=== PATIENT | male | born 1935 | race Caucasian/White ===

== ENCOUNTER → 2023-10-14 10:29 | Outpatient (REF) | payer MEDICARE, OTHER, SELFPAY ==
[2023-10-14 11:08] LABS: HDL Cholesterol 26 mg/dl; LDL Cholesterol, Calculated 28 mg/dl; Total Cholesterol 79 mg/dl (50-199); Triglyceride 126 mg/dl (10-149); Very Low Density Lipoprotein 25 mg/dl (0-30)
== END ==
LOC: OLABN 10:29
PROVIDERS: ATTENDING PHYSICIAN Student in an Organized Health Care Education/Training Program
DX: E78.5 Hyperlipidemia, unspecified (principal)
CPT/HCPCS: 36415; 80061

== ENCOUNTER → 2023-10-25 10:09 | Outpatient (REF) | payer MEDICARE, OTHER, SELFPAY ==
[2023-10-25 12:23] LABS: Blood Urea Nitrogen 53 mg/dl (9-20); Calcium 10.2 mg/dl (8.4-10.2); Carbon Dioxide 28 mmol/L (22-30); Chloride 97 mmol/L (98-107); Glucose 89 mg/dl (70-99); Potassium 4.7 mmol/L (3.5-5.1); Sodium 134 mmol/L (135-145); eGFR 19.37
[2023-10-25 13:16] LABS: Vitamin B12 966 pg/ml (239-931)
== END ==
LOC: OLABN 10:09
PROVIDERS: ATTENDING PHYSICIAN Student in an Organized Health Care Education/Training Program
DX: E83.51 Hypocalcemia (principal); E53.8 Deficiency of other specified B group vitamins
CPT/HCPCS: 36415; 80048; 82607

== ENCOUNTER → 2023-11-02 13:25 | Outpatient (REF) | payer MEDICARE, OTHER, SELFPAY ==
[2023-11-02 14:48] LABS: Blood Urea Nitrogen 23 mg/dl (9-20); Carbon Dioxide 23 mmol/L (22-30); Chloride 106 mmol/L (98-107); Glucose 99 mg/dl (70-99); Potassium 4.7 mmol/L (3.5-5.1); Sodium 134 mmol/L (135-145); eGFR 41.19
== END ==
LOC: OLABN 13:25
PROVIDERS: ATTENDING PHYSICIAN Student in an Organized Health Care Education/Training Program
DX: I10 Essential (primary) hypertension (principal)
CPT/HCPCS: 36415; 80048

== ENCOUNTER → 2023-11-09 10:52 | Outpatient (REF) | payer MEDICARE, OTHER, SELFPAY ==
[2023-11-09 12:05] LABS: Blood Urea Nitrogen 22 mg/dl (9-20); Calcium 7.3 mg/dl (8.4-10.2); Carbon Dioxide 23 mmol/L (22-30); Chloride 104 mmol/L (98-107); Glucose 85 mg/dl (70-99); Potassium 5.1 mmol/L (3.5-5.1); Sodium 133 mmol/L (135-145); eGFR 48.34
== END ==
LOC: OLABN 10:52
PROVIDERS: ATTENDING PHYSICIAN Student in an Organized Health Care Education/Training Program
DX: I10 Essential (primary) hypertension (principal)
CPT/HCPCS: 36415; 80048

== ENCOUNTER → 2023-11-15 10:12 | Outpatient (REF) | payer MEDICARE, OTHER, SELFPAY ==
[2023-11-15 11:27] LABS: Hematocrit 23.4 % (39.0-52.0); Hemoglobin 7.5 g/dL (13.0-18.0); Mean Corp Hgb Conc. 32.1 g/dL (33.0-37.0); Mean Corpuscular Hgb 34.1 pg (27.0-31.0); Mean Corpuscular Volume 106.4 fL (80.0-94.0); Mean Platelet Volume 10.7 fL (7.4-10.4); Platelet Count 820 10^3/uL (130-400); Red Cell Dist. Width 20.6 % (11.5-14.5); White Blood Cell Count 9.3 10^3/uL (4.8-10.8)
[2023-11-15 11:31] LABS: Blood Urea Nitrogen 28 mg/dl (9-20); Calcium 8.8 mg/dl (8.4-10.2); Carbon Dioxide 21 mmol/L (22-30); Chloride 102 mmol/L (98-107); Glucose 100 mg/dl (70-99); Potassium 4.9 mmol/L (3.5-5.1); Sodium 132 mmol/L (135-145); eGFR 41.19
== END ==
LOC: OLABN 10:12
PROVIDERS: ATTENDING PHYSICIAN Student in an Organized Health Care Education/Training Program
DX: I10 Essential (primary) hypertension (principal)
CPT/HCPCS: 36415; 80048; 85027

== ENCOUNTER → 2023-11-16 11:29 | Outpatient (REF) | payer MEDICARE, OTHER, SELFPAY ==
[2023-11-16 12:30] LABS: Blood Urea Nitrogen 31 mg/dl (9-20); Calcium 8.7 mg/dl (8.4-10.2); Carbon Dioxide 26 mmol/L (22-30); Chloride 99 mmol/L (98-107); Glucose 82 mg/dl (70-99); Potassium 5.3 mmol/L (3.5-5.1); Sodium 133 mmol/L (135-145)
[2023-11-18 08:48] LABS: Iron 37 ug/dl (49-181)
[2023-11-18 08:57] LABS: Percent Saturation 13 % (20-50); Total Iron Binding Capacity 275 ug/dl (261-462)
[2023-11-18 10:29] LABS: Ferritin 98.4 ng/ml (17.9-464.0)
[2023-11-18 10:44] LABS: Vitamin B12 558 pg/ml (239-931)
== END ==
LOC: OLABN 11:29
PROVIDERS: ATTENDING PHYSICIAN Student in an Organized Health Care Education/Training Program
DX: I10 Essential (primary) hypertension (principal)
CPT/HCPCS: 36415; 80048; 82607; 82728; 83540; 83550

== ENCOUNTER → 2023-11-23 10:14 | Outpatient (REF) | payer MEDICARE, OTHER, SELFPAY ==
[2023-11-23 11:21] LABS: Blood Urea Nitrogen 25 mg/dl (9-20); Calcium 8.1 mg/dl (8.4-10.2); Carbon Dioxide 24 mmol/L (22-30); Chloride 105 mmol/L (98-107); Glucose 120 mg/dl (70-99); Potassium 4.3 mmol/L (3.5-5.1); Sodium 135 mmol/L (135-145)
== END ==
LOC: OLABN 10:14
PROVIDERS: ATTENDING PHYSICIAN Student in an Organized Health Care Education/Training Program
DX: I10 Essential (primary) hypertension (principal)
CPT/HCPCS: 36415; 80048

== ENCOUNTER → 2023-12-01 10:22 | Outpatient (REF) | payer MEDICARE, OTHER, SELFPAY ==
[2023-12-01 10:53] LABS: Hematocrit 24.3 % (39.0-52.0); Hemoglobin 7.9 g/dL (13.0-18.0); Mean Corp Hgb Conc. 32.5 g/dL (33.0-37.0); Mean Corpuscular Volume 107.5 fL (80.0-94.0); Mean Platelet Volume 11.7 fL (7.4-10.4); Platelet Count 562 10^3/uL (130-400); Red Blood Cell Count 2.26 10^6/uL (4.70-6.10); Red Cell Dist. Width 20.6 % (11.5-14.5); White Blood Cell Count 7.7 10^3/uL (4.8-10.8)
== END ==
LOC: OLABN 10:22
PROVIDERS: ATTENDING PHYSICIAN Student in an Organized Health Care Education/Training Program
DX: I10 Essential (primary) hypertension (principal); N39.0 Urinary tract infection, site not specified
CPT/HCPCS: 36415; 85027

== ENCOUNTER → 2023-12-07 11:42 | Outpatient (REF) | payer MEDICARE, OTHER, SELFPAY ==
[2023-12-07 13:01] LABS: % Basophils 0.4 % (0-2); % Eosinophils 11.7 % (0-6); % Immature Granulocytes 0.2 % (0-0.5); % Lymphocytes 46.5 % (20.5-51.1); % Monocytes 3.7 % (1.7-9.3); % Neutrophils 37.5 % (42.2-75.2); Absolute Lymphocytes 3.8 10^3/uL (1.2-3.4); Absolute Monocytes 0.3 10^3/uL (0.1-0.6); Absolute Neutrophils 3.1 10^3/uL (1.4-6.5); Hematocrit 25.4 % (39.0-52.0); Hemoglobin 8.2 g/dL (13.0-18.0); Mean Corp Hgb Conc. 32.3 g/dL (33.0-37.0); Mean Corpuscular Volume 108.5 fL (80.0-94.0); Mean Platelet Volume 11.1 fL (7.4-10.4); Nucleated Red Blood Cells % 0.2 % (-); Platelet Count 678 10^3/uL (130-400); Red Blood Cell Count 2.34 10^6/uL (4.70-6.10); Red Cell Dist. Width 20.9 % (11.5-14.5); White Blood Cell Count 8.2 10^3/uL (4.8-10.8)
[2023-12-07 13:22] LABS: Blood Urea Nitrogen 25 mg/dl (9-20); Calcium 8.5 mg/dl (8.4-10.2); Carbon Dioxide 24 mmol/L (22-30); Chloride 101 mmol/L (98-107); Glucose 86 mg/dl (70-99); Potassium 4.8 mmol/L (3.5-5.1); Sodium 136 mmol/L (135-145); eGFR 48.34
== END ==
LOC: OLABN 11:42
PROVIDERS: ATTENDING PHYSICIAN Student in an Organized Health Care Education/Training Program
DX: I10 Essential (primary) hypertension (principal)
CPT/HCPCS: 80048; 85025

== ENCOUNTER → 2024-01-07 14:08 | Outpatient (REF) | payer MEDICARE, OTHER, SELFPAY ==
[2024-01-07 14:11] LABS: % Basophils 0.1 % (0-2); % Eosinophils 8.1 % (0-6); % Immature Granulocytes 0.2 % (0-0.5); % Lymphocytes 26.6 % (20.5-51.1); % Monocytes 3.2 % (1.7-9.3); % Neutrophils 61.8 % (42.2-75.2); Absolute Eosinophils 0.8 10^3/uL (0-0.7); Absolute Lymphocytes 2.6 10^3/uL (1.2-3.4); Absolute Monocytes 0.3 10^3/uL (0.1-0.6); Absolute Neutrophils 5.9 10^3/uL (1.4-6.5); Hematocrit 27.2 % (39.0-52.0); Mean Corp Hgb Conc. 33.1 g/dL (33.0-37.0); Mean Corpuscular Hgb 34.7 pg (27.0-31.0); Mean Platelet Volume 11.2 fL (7.4-10.4); Nucleated Red Blood Cells % 0 % (-); Platelet Count 816 10^3/uL (130-400); Red Blood Cell Count 2.59 10^6/uL (4.70-6.10); Red Cell Dist. Width 19.1 % (11.5-14.5); Reticulocyte Count 1.6 % (0.4-2.8); White Blood Cell Count 9.6 10^3/uL (4.8-10.8)
[2024-01-07 14:31] LABS: Erythrocyte Sed Rate 69 mm/hour (0-20); Iron 93 ug/dl (49-181); LDH 225 U/L (120-246)
[2024-01-07 14:41] LABS: Percent Saturation 31 % (20-50); Total Iron Binding Capacity 291 ug/dl (261-462)
[2024-01-07 15:02] LABS: TSH Reflex To Free T4 2.07 uIU/ml (0.47-4.68)
[2024-01-07 15:06] LABS: Ferritin 84.8 ng/ml (17.9-464.0)
[2024-01-07 15:38] LABS: Folate 4.5 ng/ml (2.76-20)
[2024-01-09 09:53] LABS: Erythropoietin (EPO) 49 mU/mL (4-27)
[2024-01-10 22:24] LABS: Albumin 3.73 g/dL (3.75-5.01); Alpha 1 Globulin 0.33 g/dL (0.19-0.46); Alpha 2 Globulin 0.77 g/dL (0.48-1.05); Free Kappa Light Chains,Quant 91.82 mg/L (3.30-19.40); Free Lambda Light Chains,Quant 65.19 mg/L (5.71-26.30); IgA 374 mg/dL (68-408); IgG 1170 mg/dL (768-1632); IgM 70 mg/dL (35-263); Immunofixation Electrophoresis IFE Done; Kappa/Lambda Fr Light Ratio 1.41 (0.26-1.65); Total Protein-Electrophoresis 7.1 g/dL (6.3-8.2)
== END ==
LOC: OIDL 14:08
PROVIDERS: ATTENDING PHYSICIAN Internal Medicine Hematology & Oncology
DX: D50.9 Iron deficiency anemia, unspecified (principal); D52.0 Dietary folate deficiency anemia; R53.82 Chronic fatigue, unspecified
CPT/HCPCS: 82668; 82728; 82746; 82784; 83521; 83540; 83550; 83615; 84155; 84165; 84443; 85025; 85045; 85652; 86334

== ENCOUNTER 2024-01-31 03:34 | Inpatient (IN) | payer MEDICARE, OTHER, SELFPAY ==
[2024-01-30 22:57] VITALS: BP 113/45
[2024-01-30 23:25] LABS: Urine Albumin Trace (Neg - Trace); Urine Bilirubin 1+ (Negative); Urine Character Slightly Cloudy (Clear); Urine Color Yellow; Urine Glucose Negative (Negative); Urine Ketone Negative (Negative); Urine Leukocyte 2+ (Negative); Urine Nitrite Positive (Negative); Urine Occult Blood 1+ (Negative); Urine Urobilinogen Negative (Neg - 1+)
[2024-01-30 23:30] VITALS: BMI 27.5
[2024-01-30 23:52] LABS: Hemoglobin 8.1 g/dL (13.0-18.0); Mean Corp Hgb Conc. 32.4 g/dL (33.0-37.0); Mean Corpuscular Hgb 35.8 pg (27.0-31.0); Mean Corpuscular Volume 110.6 fL (80.0-94.0); Mean Platelet Volume 10.8 fL (7.4-10.4); Platelet Count 686 10^3/uL (130-400); Red Blood Cell Count 2.26 10^6/uL (4.70-6.10); Red Cell Dist. Width 18.7 % (11.5-14.5); White Blood Cell Count 10.5 10^3/uL (4.8-10.8)
[2024-01-31] VITALS (12 sets, daily range): BP systolic 103–152; BP diastolic 44–99; BMI 27.2
[2024-01-31 00:05] LABS: ALT (SGPT) 20 U/L (0-50); AST (SGOT) 34 U/L (17-59); Alkaline Phosphatase 77 U/L (38-126); Blood Urea Nitrogen 30 mg/dl (9-20); Calcium 8.1 mg/dl (8.4-10.2); Carbon Dioxide 23 mmol/L (22-30); Chloride 108 mmol/L (98-107); Estimated Creatinine Clearance 31 ml/min; Glucose 106 mg/dl (70-99); Potassium 4.3 mmol/L (3.5-5.1); Sodium 140 mmol/L (135-145); Total Bilirubin 0.7 mg/dl (0.2-1.3); Total Protein 5.9 g/dl (6.3-8.2)
[2024-01-31 00:09] LABS: COVID-19 Antigen Negative (Negative)
[2024-01-31 00:47] LABS: Urine Amorphous Seen; Urine Bacteria Many (Negative); Urine Squamous Cell >30 /LPF (Few); Urine White Cell >100 /HPF (0-5)
[2024-01-31 00:48] LABS: Urine Mucus Moderate; Urine Urothelial Cell >30 /LPF (FEW)
[2024-01-31 00:49] LABS: Urine White Cell Cast 0-2 /LPF
[2024-01-31 01:04] LABS: Absolute Neutrophils -Man Diff 8.2 10^3/uL (1.4-6.5); Anisocytosis 1+; Band Neutrophils 14 % (0-3); Eosinophils 1 % (0-6); Lymphocytes 19 % (20-51); Macrocytosis 1+; Monocytes 1 % (2-9); Normal RBC Morphology No; Segmented Neutrophils 65 % (42-75)
[2024-01-31 01:05] LABS: Hypochromasia 2+; Stomatocytes 1+; Target Cells 1+; Total Cells Counted 100
[2024-01-31 01:06] LABS: Basophilic Stippling Occasional; Polychromasia Occasional
[2024-01-31 01:08] LABS: Ovalocytes Occasional; Platelets Checked Yes
[2024-01-31 01:09] LABS: Toxic Granulation Occassional
--- NOTE | 2024-01-31 01:27 | ED.GENMED ---
History of Present Illness
General
Chief Complaint: Fever
Source: patient and family
Exam Limitations: clinical condition and altered mental status
Time Seen by Provider: 01/31/24 00:57
Nursing documentation reviewed up to this point in time: agreed with
Travel History
Have you had any contact with someone who has COVID-19?: No
Do you have any symptoms of coronavirus? Fever > 100 degrees, chills, cough, shortness of breath, sore throat, loss of taste or smell, muscle aches, or headache?: Yes
Symptoms:: Fever
History of Present Illness
History of Present Illness:
Confused 88-year-old male presents with fever. Patient resides at [facility] and has lived there for the last 6 years. Patient had a stroke 26 years ago and has lived with his as his primary caregiver for 20 of those years. She moved
him into a [facility] when she could not transfer him any longer due to the size difference. Patient's states that she goes to the chcf every evening after work and all weekend long to care for him. She states that today he had a
fever. She does report that over the last few weeks he has lost about 9 pounds. She noticed that he has been eating much less than typical. She states that he has had increased confusion and has been aggressive towards the nurses which is
atypical for him. Patient has also had an indwelling suprapubic catheter for several years.
Vital signs are stable. Patient not hypoxic
Nursing note reviewed. I agree with nursing documentation up to this point in time.
Home Meds and allergies reviewed.
NUMBER AND COMPLEXITY OF PROBLEMS ADDRESSED AT THE ENCOUNTER
� Chronic conditions affecting care: Memory loss, aphasia, paralysis, suprapubic catheter. Anemia
� Acute Exacerbation and/or Progression of Chronic Illness:
� Differential Diagnosis includes: UTI, sepsis, fever
AMOUNT AND/OR COMPLEXITY OF DATA TO BE REVIEWED AND ANALYZED
I performed an independent evaluation of the following and my interpretation is:
EKG:
CT:
X-rays: Chest x-ray shows likely right-sided pneumonia
Ultrasound:
Laboratory Studies: Hemoglobin 8.1 which is typical of his previous hemoglobins.
Other:
Review of other/old records: Operative report 06/02/2023 placement of suprapubic tube
Clinical information was obtained by an independent historian:
Prescriptions/Medications Considered but not given:
Further testing considered but not performed:
RISK OF COMPLICATIONS AND/OR MORBIDITY OR MORTALITY OF PATIENT MANAGEMENT
Social determinants of health affecting care: Good Social Support
Discussion with other providers:
Escalation of care including admission/observation vs risk of discharge considered:
CRITICAL CARE NOTE:
Total Time (exclusive of procedures):
Update:
Past History
Past History
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
ED Past Surgical History: Urological (Suprapubic catheter)
Social History
Tobacco: Non-smoker
Alcohol: None
Drug: None
Personal:
Living: chcf ([facility])
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
Family History
Family History: Other (n/c)
Review of Systems
Review of Systems
Allergies reviewed?: Yes
Other source history: family
Constitutional: Reports fever, weight loss, fatigue and sleep disturbance
Neurological: Reports weakness
Psychiatric: Reports other (Aggressive behavior)
Phy Exam
General Physical Exam
General Presentation: mild distress
General age: appears older than age
General Skin: warm and dry
General Habitus: debilitated and elderly
General Mental: confused
General Chronic Disability: diapers, non ambulatory and other (On 2 L nasal cannula)
Cardiovascular Exam
Cardiovascular Exam: regular rate/rhythm and no edema
Pulmonary Exam
Pulmonary Exam: lungs clear and no respiratory distress (On 2 L nasal cannula)
Gastrointestinal Exam
Gastrointestinal Exam: normal bowel sounds, non tender, soft and non distended
Neurological Exam
Neurological Exam: confused and non verbal
Musculoskeletal Exam
Musculoskeletal Exam: neuro vasc intact and other (Right-sided weakness)
Skin Exam
Skin Exam: normal color and warm/dry
Psychiatric Exam
Psychiatric Exam: labile
Course
Orders/Labs/Results
Orders:
Orders
01/30/24 23:07
CR Chest Portable - 1 View Urgent
Comment:
Reason For Exam: cough and fever
Reason Study Needs to be Portable: Unable to Transport
01/30/24 23:08
Electrocardiogram (*1) Urgent
Reason for Study: Other
Other Reason for Exam: Possible Sepsis
Cardiac Monitoring- Treatment ONCE
EKG- Treatment ONCE
IV Insert/Care/Rem.- Treatment PRN
Straight cath- Treatment ONCE
O2 Therapy [RESP] Urgent
Titrate/Wean O2 to maintain O2 sat greater than (%): 93
Special Instructions: TO MAINTAIN CONTINUOUS O2 SATS > OR = 93%
Pulse Ox/cont/shift [RESP] Urgent
Quantity: 1
Special Instructions: CONTINUOUS
01/30/24 23:18
Urinalysis Reflex To Culture Urgent
Date Specimen was Collected: 01/30/24
Time Specimen was Collected: 23:08
Urine Microscopic Reflex Cult Urgent
Urine Culture Urgent
MEDHAT Source: U
Specimen Description:
Date Specimen was Collected: 01/30/24
Time Specimen was Collected: 23:08
01/30/24 23:41
COVID-19 Antigen Urgent
Source: Nasal Swab
Complete Blood Count/With Diff Urgent
Comprehensive Metabolic Panel Urgent
Lactic Acid Q4H
Comment: ON ICE, CANCEL 2ND ORDER IF FIRST LACTIC ACID LEVEL <2
Manual Differential Urgent
Blood Culture Q30M
MEDHAT Source: Blood/Venous
Specimen Description:
Comment: FROM 2 SEPARATE SITES
Influenza A+B Rapid Molecular Urgent
MEDHAT Source: Nasal Swab
Specimen Description:
01/30/24 23:45
Blood Culture Q30M
MEDHAT Source: Blood/Venous
Specimen Description:
Comment: FROM 2 SEPARATE SITES
01/31/24 01:33
Aztreonam [Azactam] 2,000 mg IV NOW STA
01/31/24 01:44
Sterile Water [Sterile Water For Injection] 10 ml .ROUTE .[facility]
01/31/24 02:03
Linezolid 600 mg/300 ml [Zyvox 600 mg] 300 ml IV NOW
01/31/24 03:05
Admit/Transfer Patient As Directed
Co-Sign Provider:
Level of Care: Inpatient admission
Assign to:: Telemetry
Physician / Group: Godfrey
Diagnosis: Pneumonia / Change in MS
Reason for Telemetry: Arrhythmia
Date to Stop Telemetry: 02/03/24
Time to Stop Telemetry: 11:00
Reason for Hospitalization: Pneumonia / Change in MS
Expected length of stay greater than two midnights?: Yes
ELOS- Estimated Length of Stay in days: 4
I certify the patient meets the requirements for IP care: Yes
01/31/24 03:14
Code Status As Directed
Resuscitation Status: Do not resuscitate
Reached after discussion with pt or family/Healthcare POA: Yes
01/31/24 03:18
DNR Bracelet Application ONCE
01/31/24 04:46
0.9% Sodium Chloride 1000 ml [Nss] 1,000 ml IV 100 mls/hr
Acetaminophen [Tylenol] 650 mg PO Q4HPRN PRN
Albuterol Nebs [Ventolin Nebules] 2.5 mg INH R Q4HPRN PRN
Polyethylene Glycol Powder [Miralax] 17 grams PO DAILY PRN
01/31/24 04:46
Activity As Directed
Activity Level: Out of Bed- Chair
With Assistance
Catheter-Suprapubic As Directed
EKG with chest pain [ECG as needed] As Directed
ECG as needed for:: Chest Pain
I/O [Intake/ Output] As Directed
Frequency: Per unit guidelines
Vital Signs As Directed
Frequency: Per unit guidelines
Oxygen Therapy [O2 Therapy] [RESP] Routine
Titrate/Wean O2 to maintain O2 sat greater than (%): 94
US Renal With Bladder Routine
Comment:
Reason For Exam: UTI, History of stones
DX Deep Vein Thrombosis Video Routine
01/31/24 05:12
Basic Metabolic Panel IN AM
Complete Blood Count/No Diff IN AM
01/31/24 Breakfast
Regular
At Your Request: Limited, Commissioning Editor Required
Does patient need a safe tray?: No
01/31/24 08:00
Aspirin 325 mg PO DAILY
Docusate Sodium [Colace] 100 mg PO BID
Doxycycline [Vibramycin] 100 mg PO Q12
01/31/24 18:00
Enoxaparin Sodium [Lovenox] 30 mg SC QPM
01/31/24 22:00
Atorvastatin [Lipitor] 40 mg PO HS
Sennosides [Senokot] 17.2 mg PO HS
02/03/24 11:00
DC Protocol for Telemetry ONCE
Abnormal Lab Results
01/30/24 01/30/24
23:18 23:41
RBC 2.26 L 10^6/uL
(4.70-6.10)
Hgb 8.1 L g/dL
(13.0-18.0)
Hct 25.0 L %
(39.0-52.0)
MCV 110.6 H fL
(80.0-94.0)
MCH 35.8 H pg
(27.0-31.0)
MCHC 32.4 L g/dL
(33.0-37.0)
RDW 18.7 H %
(11.5-14.5)
Plt Count 686 H 10^3/uL
(130-400)
MPV 10.8 H fL
(7.4-10.4)
Abs Neuts (Manual) 8.2 H 10^3/uL
(1.4-6.5)
Band Neutrophils 14 H %
(0-3)
Lymphocytes (Manual) 19 L %
(20-51)
Monocytes (Manual) 1 L %
(2-9)
Chloride 108 H mmol/L
(98-107)
BUN 30 H mg/dl
(9-20)
Creatinine 1.7 H mg/dL
(0.7-1.3)
Glucose 106 H mg/dl
(70-99)
Calcium 8.1 L mg/dl
(8.4-10.2)
Total Protein 5.9 L g/dl
(6.3-8.2)
Albumin 3.0 L g/dl
(3.5-5.0)
Ur Occult Blood Reflex 1+ A
(Negative)
Urine Nitrite (Reflex) Positive A
(Negative)
Urine Bilirubin 1+ A
(Negative)
Leukocyte Esterase Rfl 2+ A
(Negative)
Urine WBC (Reflex) >100 A /HPF
(0-5)
Urine Bacteria (Reflex) Many A
(Negative)
01/30/24 23:41
01/30/24 23:41
Vital Signs
Initial and Last Documented VS:
Initial Vital Signs
Pulse Resp BP Pulse Ox
69 28 113/45 90
01/30/24 22:57 01/30/24 22:57 01/30/24 22:57 01/30/24 22:57
Last Documented Vital Signs
Temp Pulse Resp BP Pulse Ox
99.7 F 71 20 130/57 91
02/01/24 19:39 02/01/24 19:39 02/01/24 19:39 02/01/24 19:39 02/01/24 19:39
*Critical Care Note
Total Time (30-74mins, 75-104mins- exclusive of procedures): Not Applicable
ED Attending Note
-
Portions of this chart may have been created with voice recognition software.� Occasional wrong word or��sound alike� substitutions may have occurred due to the inherent limitations of voice recognition software.
Discharge Plan
Departure
Patient Disposition: Admit
Date of Disposition: 01/31/24
Time of Disposition: 01:55
Admit to: Med/Surg
Presentation/result/management discussed w/ accepting MD/DO: Hospitalist
Discharge Problem:
Pneumonia, Acute UTI, Adult failure to thrive, Weakness
Interventions
Interventions:
*Risk Screen - Suicide Last Done: 01/30/24 22:57
*General Assessment Last Done: 01/30/24 22:57
*Neglect/Abuse Screening Last Done: 01/30/24 22:57
ED- Fall Risk Assessment Last Done: 01/30/24 23:11
*ED COVID-19 Vaccine History Last Done: 01/30/24 22:57
*Nursing Disposition Last Done: 01/31/24 04:40
ED- Neurological Assessment Last Done: 01/30/24 23:59
ED-Skin Assessment Last Done: 01/30/24 23:59
Discharge Date and Time
Discharge Date/Time: 01/31/24 04:40
[2024-01-31] MEDS: AZACTAM 2000 MG IV (01:51)
--- NOTE | 2024-01-31 02:02 | EDRN ---
Called pharmacy for zyvox iv
[2024-01-31] MEDS: ZYVOX 600 MG 300 IV (02:45)
--- NOTE | 2024-01-31 03:20 | HPS.HSE ---
Family Physician
-
Family Physician: Jack Olsen,
Chief Complaint
-
Fever, Altered Mental Status
History of Present Illness
Patient is an 88y M with PMH significant for prior CVA with resultant R hemiparesis / aphasia, neurogenic bladder and chronic suprapubic catheter who presents to ED for evaluation of fever and mental status change. History obtained from [facility]
record, ED staff and at the bedside. notes that patient started to have decreased appetite, increased agitation / confusion and hacking cough on Wednesday. His symptoms have gradually progressed since that time. Patient is either sleeping
or agitated according to his . He has not been noted to have any N/V/D. His urine output via suprapubic catheter appears to be diminished.
His vitals at the [facility] this evening included fever to 102 and SpO2 in the 80s on room air.
In the ED, patient is sleeping comfortably. He wakens briefly and will answer Y/N questions, but falls quickly back to sleep.
At baseline, he is confined to a wheelchair and has difficulty with communication due to his chronic aphasia.
Medical History
Past Medical History
Past Medical History: Reports Other
Additional Past Medical History:
ASCVD / CVA
Right Hemiparesis / Aphasia s/p CVA
Hypertension
Neurogenic Bladder
Nephrolithiasis
GERD
Anemia of Chronic Disease
Essential Thrombocytosis
CKD III
Past Surgical History: Reports Other
Additional Past Surgical History:
Suprapubic Catheter
Ureteroscopy / Stent
Social History
Tobacco: Non-smoker
Alcohol: None
Drug: None
Living: [facility]sp
Family History
Family History: Not pertinent
Allergies / Home Medications
Allergies reflects when Allergies were last updated in [employer]
Home Medications with original date entered in [employer]
Allergy/Medication List:
Allergies
Allergy/AdvReac Type Severity Reaction Status Date / Time
vancomycin Allergy Intermediate Hives Verified 01/31/24 00:24
latex Allergy Unknown Verified 01/31/24 00:24
Penicillins Allergy Swelling Verified 01/31/24 00:24
Home Medications
acetaminophen 325 mg capsule (Tylenol) 650 mg PO Q4HPRN PRN mild pain, T>100.4 05/03/23
aspirin 325 mg tablet 325 mg PO DAILY Blood Clot Prevention/Tx 05/03/23
atorvastatin 40 mg tablet 40 mg PO HS High Cholesterol 05/03/23
bisacodyl 10 mg rectal suppository 10 mg VA DAILYPRN PRN no BM after MOM 05/03/23
docusate sodium 100 mg capsule (Colace) 100 mg PO MOWEFR 05/03/23
famotidine 10 mg tablet 10 mg PO DAILY 05/03/23
ferrous gluconate 324 mg (37.5 mg iron) tablet 324 mg PO DAILY 05/03/23
furosemide 20 mg tablet 40 mg PO DAILY 05/03/23
magnesium hydroxide 400 mg/5 mL oral suspension (Milk of Magnesia) 30 ml PO HSPRN PRN constipation 05/03/23
nifedipine 30 mg tablet,extended release 24 hr (Procardia XL) 30 mg PO DAILY #14 tabs 05/09/23
lisinopril 40 mg tablet 40 mg PO DAILY 05/26/23
calcium carbonate 500 mg PO DAILY 01/31/24
cholecalciferol (vitamin D3) 125 mcg (5,000 unit) tablet (Vitamin D3) 125 mcg PO DAILY 01/31/24
cyanocobalamin (vitamin B-12) 1,000 mcg tablet,extended release (Vitamin B-12 ER) 1,000 mcg PO DAILY 01/31/24
Review of Systems
-
History Source: Family
Constitutional: Reports Fever and Fatigue
Respiratory: Reports Cough
Abdomen/GI: Denies Nausea, Vomiting or Diarrhea
: Reports Suprapubic Tube and Other (Decreased volume of urination.)
Musculoskeletal: Reports Edema
Psych: Reports Anxiety
Physical Exam
Vital Signs
Vital Signs
Temp Pulse Resp BP Pulse Ox
99.2 F 70 15 140/99 94
01/30/24 23:30 01/31/24 03:00 01/31/24 03:00 01/31/24 03:00 01/31/24 03:00
Physical Exam
General: Other (Chronically ill-appearing 88y M lethargic in the ED. Awakens briefly to voice and answers Y/N questions at times.)
HEENT: Other (Thick neck. Dry MM.)
Respiratory: Other (Few coarse breath sounds appreciated over the R base. No wheezing / rales.)
Cardiac: S1/S2, Regular Rhythm and Murmur (III/ ALEJANDRO)
GI: Soft, Non Tender, Non Distended and Normal Bowel Sounds
Genito-urinary: Other (Suprapubic tube in place. No purulent drainage or surrounding erythema. Dark / sandy urine in device.)
Musculoskeletal: Other (Dependent edema in the RUE and RLE greater than the left.)
Neuro: Other (Dense R hemiparesis and expressive aphasia are unchanged. No new deficits appreciated.)
Laboratory Results
-
01/30/24 23:41
01/30/24 23:41
Laboratory Results
Lactic Acid Cancelled 01/31/24 03:15
Total Bilirubin 0.7 mg/dl (0.2-1.3) 01/30/24 23:41
AST 34 U/L (17-59) 01/30/24 23:41
ALT 20 U/L (0-50) 01/30/24 23:41
Alkaline Phosphatase 77 U/L (38-126) 01/30/24 23:41
Impression/Plan
-
A/P: Patient is an 88y M with PMH significant for R hemiparesis and aphasia s/p prior CVA who presents to ED for evaluation of fever, cough and altered mental status.
RLL Pneumonia
Acute Hypoxemic Respiratory Insufficiency secondary to the above
Acute TME secondary to the above
Sepsis secondary to the above
- Admit for further evaluation and treatment.
- Patient presents with fever, bandemia, hypoxemia and CXR / clinical signs consistent with pneumonia.
- Evidence of life-threatening organ dysfunction in the form of acute TME and hypoxemia.
- Abx with cefepime and doxycycline for now.
- Follow-up culture data / clinical course and adjust abx as needed.
- Supportive care including mucolytics, IVFs, nebs, O2 support.
- Follow for clinical improvement / return to baseline mentation and functional status.
Neurogenic Bladder
Suprapubic Catheter
- Possible UTI based on UA results - though > 30 squamous cells in that sample.
- Abx as noted above and follow-up urine culture data.
- Check renal US given prior h/o stone disease.
ASCVD
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
- Stable. No new deficits.
- Continue current ASA, statin, BP control, etc.
- Supportive care including patient positioning, etc.
- OOB to chair when able.
CKD III
- Stable. Renal function is near known baseline.
- Follow for any changes.
- Hold diuretic acutely with decreased urine output / sepsis.
Benign Hypertension
- Holding parameters for usual meds.
- Adjust regimen as needed for adequate BP control.
Chronic Macrocytic Anemia
- Likely anemia of chronic disease.
- Note also thrombocytosis which is similarly chronic.
- Cell counts seem consistent with recent baseline.
- Recent B12 / folate assays have been unremarkable.
- Follow for any changes.
DVT Prophylaxis: Lovenox
Code Status: DNR
--- NOTE | 2024-01-31 05:10 | PTCARENOTE ---
PT arrived from ED, pulled over. RUE and RLE weakness, aphasia noted. Admission completed with patients spouse. Pt with dark green/black loose stool- heme tested negative. Temp 100.1 rectal. IVF infusing. Medlist updated per Roxanne Weaver
paperwork. updated on POC- bed alarm in place. Will continue to monitor.
[2024-01-31] MEDS: NSS 1000 IV ×2 (05:32→14:47)
[2024-01-31 05:42] LABS: Hematocrit 25.9 % (39.0-52.0); Hemoglobin 8.2 g/dL (13.0-18.0); Mean Corp Hgb Conc. 31.7 g/dL (33.0-37.0); Mean Corpuscular Hgb 34.6 pg (27.0-31.0); Mean Corpuscular Volume 109.3 fL (80.0-94.0); Platelet Count 783 10^3/uL (130-400); Red Blood Cell Count 2.37 10^6/uL (4.70-6.10); Red Cell Dist. Width 19.3 % (11.5-14.5); White Blood Cell Count 12.3 10^3/uL (4.8-10.8)
[2024-01-31 06:05] LABS: Blood Urea Nitrogen 30 mg/dl (9-20); Calcium 8.2 mg/dl (8.4-10.2); Carbon Dioxide 24 mmol/L (22-30); Chloride 105 mmol/L (98-107); Estimated Creatinine Clearance 33 ml/min; Glucose 107 mg/dl (70-99); Potassium 4.3 mmol/L (3.5-5.1); Sodium 137 mmol/L (135-145); eGFR 41.19
[2024-01-31] MEDS: STERILE WATER FOR INJECTION 10 ML IV ×2 (06:27→17:59)
[2024-01-31] MEDS: MAXIPIME 2000 MG IV ×2 (06:27→17:59)
[2024-01-31] MEDS: ASPIRIN 325 MG PO (07:48)
[2024-01-31] MEDS: VIBRAMYCIN 100 MG PO ×2 (07:48→20:28)
[2024-01-31] MEDS: DESENEX/MITRAZOL/ZEASORB 1 APPLIC TOPICAL ×2 (07:49→20:28)
[2024-01-31] MEDS: NSS (PRESERVATIVE FREE) 10 ML IV (07:49)
[2024-01-31] MEDS: COLACE PO ×2 (07:49→20:27)
[2024-01-31] MEDS: PROTONIX IV 40 MG IV (07:49)
--- NOTE | 2024-01-31 08:40 | W.PN.HOSP.TC ---
Today's Communication/Plan
-
Continue antibiotics, follow cultures
Assessment / Plan
Assessment / Plan
Physical Exam
General: Other (Chronically ill-appearing 88y M lethargic, awakens briefly to voice and answers Y/N questions at times.)
HEENT: Normocephalic
Respiratory: Few coarse breath sounds appreciated over the right base. No wheezing/rales.
Cardiac: S1/S2, Regular Rhythm and Murmur (III/ ALEJANDRO)
GI: Soft, Non Tender, Non Distended and Normal Bowel Sounds
Genito-urinary: Other (Suprapubic tube in place. No purulent drainage or surrounding erythema. Dark / sandy urine in device.)
Musculoskeletal: Other (Dependent edema in the RUE and RLE greater than the left.)
Neuro: Other (Dense R hemiparesis and expressive aphasia are unchanged. No new deficits appreciated.)

Renal Ultrasound, as per radiologist's report
'IMPRESSION:
1. Nonobstructive right nephrolithiasis.
2. Right renal cysts without suspicious features.
3. Urinary bladder decompressed with Lainez catheter in position.'
4. Cholelithiasis.

Assessment/Plan
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
RLL Pneumonia
Acute Hypoxemic Respiratory Insufficiency secondary to the above
Acute TME secondary to the above
Concern for CAUTI
Fever
Sepsis secondary to the above
- Patient presented with fever, bandemia, hypoxemia and CXR / clinical signs consistent with pneumonia.
- Evidence of life-threatening organ dysfunction in the form of acute TME and hypoxemia.
- Antibiotics with cefepime and doxycycline for now.
- Follow-up culture data / clinical course and adjust antibiotics as needed.
- Supportive care including mucolytics, IVFs, nebs, O2 support.
- Follow for clinical improvement / return to baseline mentation and functional status.
Right-Sided Kidney Stone
Neurogenic Bladder
Suprapubic Catheter
- Possible UTI based on UA results - though > 30 squamous cells in that sample.
- Abx as noted above and follow-up urine culture data.
- Renal Ultrasound Results noted
Right renal cysts without suspicious features
Cholelithiasis
- Noted on renal ultrasound January 31, 2024
ASCVD
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
Chronic Aphasia (as per patient's )
Wheelchair-bound
- Stable. No new deficits.
- Continue current ASA, statin, BP control, etc.
- Supportive care including patient positioning, etc.
- OOB to chair when able.
CKD III
- Stable. Renal function is near known baseline.
- Follow for any changes.
- Hold diuretic acutely with decreased urine output / sepsis.
Benign Hypertension
- Holding parameters for usual meds.
- Adjust regimen as needed for adequate BP control.
Chronic Macrocytic Anemia
- Likely anemia of chronic disease.
- Note also thrombocytosis which is similarly chronic -- was being tested for it outpatient with Dr. Allred's outpatient office
- Cell counts seem consistent with recent baseline.
- Recent B12 / folate assays have been unremarkable.
- Follow for any changes.
DVT Prophylaxis: Lovenox
Code Status: DNR
On January 31, 2024, I spoke with patient's inside patient's room, all questions and concerns were answered.
Anticipated Discharge: > 48 hours
Subjective/Interval History
-
Date of Service: January 31, 2024
Patient was seen and examined. He remained confused, not speaking much, his Ofe was by his bedside.
Objective Data
-
Labs:
Laboratory Results
01/30/24 01/31/24
23:41 05:12
WBC 10.5 12.3 H
Hgb 8.1 L 8.2 L
Hct 25.0 L 25.9 L
Plt Count 686 H 783 H
Sodium 140 137
Potassium 4.3 4.3
Chloride 108 H 105
Carbon Dioxide 23 24
BUN 30 H 30 H
Creatinine 1.7 H 1.6 H
Glucose 106 H 107 H
Calcium 8.1 L 8.2 L
Total Bilirubin 0.7
AST 34
ALT 20
Alkaline Phosphatase 77
Vital Signs:
Vital Signs
Temp Pulse Resp BP Pulse Ox
100.3 F 59 16 152/58 95
01/31/24 07:55 01/31/24 07:55 01/31/24 07:55 01/31/24 07:55 01/31/24 07:55
--- NOTE | 2024-01-31 10:14 | CM ---
Alert confused patient who alf at [facility] .Spoke with Sharonda Vogel pt has bed hold.Lela RN Earle [phone] said he is assisted to total care with all activities of daily living.He transfers to wheelchair and can self propel himself.He
had a stroke is aphasic. Ofe requested [place] to return to [facility].
Pharm[facility]
PCP DR Jack Olsen
PLAN Return to [facility] manor report [phone]
fax [phone]
[2024-01-31] MEDS: LOVENOX 30 MG SC (17:58)
[2024-01-31] MEDS: TYLENOL 650 MG PO (20:28)
[2024-01-31] MEDS: SENOKOT PO (20:28)
[2024-01-31] MEDS: LIPITOR 40 MG PO (20:28)
[2024-02-01] VITALS (7 sets, daily range): BP systolic 119–138; BP diastolic 53–57
[2024-02-01] MEDS: NSS 1000 IV ×3 (00:40→22:33)
[2024-02-01] MEDS: STERILE WATER FOR INJECTION 10 ML IV ×2 (05:05→18:13)
[2024-02-01] MEDS: MAXIPIME 2000 MG IV ×2 (05:05→18:13)
[2024-02-01 06:47] LABS: % Basophils 0.1 % (0-2); % Eosinophils 4.3 % (0-6); % Immature Granulocytes 0.7 % (0-0.5); % Lymphocytes 23.2 % (20.5-51.1); % Monocytes 2.3 % (1.7-9.3); % Neutrophils 69.4 % (42.2-75.2); Absolute Eosinophils 0.4 10^3/uL (0-0.7); Absolute Immature Granulocytes 0.1 10^3/uL (0-0.05); Absolute Monocytes 0.2 10^3/uL (0.1-0.6); Absolute Neutrophils 5.9 10^3/uL (1.4-6.5); Hemoglobin 7.8 g/dL (13.0-18.0); Mean Corp Hgb Conc. 32.5 g/dL (33.0-37.0); Mean Corpuscular Hgb 35.8 pg (27.0-31.0); Mean Corpuscular Volume 110.1 fL (80.0-94.0); Nucleated Red Blood Cells % 0 % (-); Platelet Count 577 10^3/uL (130-400); Red Blood Cell Count 2.18 10^6/uL (4.70-6.10); Red Cell Dist. Width 18.7 % (11.5-14.5); White Blood Cell Count 8.5 10^3/uL (4.8-10.8)
[2024-02-01 07:26] LABS: Blood Urea Nitrogen 26 mg/dl (9-20); Calcium 7.2 mg/dl (8.4-10.2); Carbon Dioxide 20 mmol/L (22-30); Chloride 110 mmol/L (98-107); Estimated Creatinine Clearance 41 ml/min; Glucose 97 mg/dl (70-99); Potassium 4.3 mmol/L (3.5-5.1); Sodium 136 mmol/L (135-145); eGFR 52.84
--- NOTE | 2024-02-01 07:39 | CON.MD ---
Consultation - Medical
-
see dictated note
pt well known to me
NGB with sp tube
last year admit with phimosis/hematuria and large right renal stone
eventually underwent cysto/dorsal slit and 2 stage right ureteroscopy
now admitted with fever/ams
ua +- cx pending (blood cx negative to date)
u/s shows small right renal stone but no hydro/evid of obstruction
plan
will exchange sp tube within the next 24hrs
continue antibx and awiat cx's
no evid of obstructive uropathy
[2024-02-01] MEDS: ASPIRIN 325 MG PO (08:56)
[2024-02-01] MEDS: COLACE PO ×2 (08:56→21:26)
[2024-02-01] MEDS: DESENEX/MITRAZOL/ZEASORB 1 APPLIC TOPICAL ×2 (08:57→20:55)
[2024-02-01] MEDS: NSS (PRESERVATIVE FREE) 10 ML IV (08:57)
[2024-02-01] MEDS: PROTONIX IV 40 MG IV (08:57)
[2024-02-01] MEDS: VIBRAMYCIN 100 MG PO ×2 (08:57→20:50)
--- NOTE | 2024-02-01 13:17 | PN.CDI ---
CDI
- -
CDI:
Physician Documentation Request
Admit Date: 01/31/24 03:34
Dear Doctor Joy,
Please review the following and provide your response in the progress notes.
Clinical Indicators:
01/30 ED
#...resides at [facility] and has lived there for the last 6 years.
#...stroke 26 years ago and has lived
#...with his as his primary caregiver for 20 of those years.
#...had an indwelling suprapubic catheter for several years.
#General Chronic Disability: diapers, non ambulatory and other (On 2 L nasal cannula)
#Pneumonia, Acute UTI, Adult failure to thrive, Weakness
01/30 H+P
#Right Hemiparesis / Aphasia s/p CVA
#Neurogenic Bladder
Selected Entries
01/31/24
04:47 01/31/24
05:40
Ambulatory aid: Bedrest/WC/None
/Nurse Bedrest/WC/None
/Nurse
Gait/transferring: Impaired Impaired
Previous Functional Ability: Dependent
#Assist with feeding
Please provide further specificity as noted below:
Functional quadriplegia (complete immobility due to severe physical disability or frailty)
Weakness only
Other (please specify)
Hemiparesis/Hemiplegia Paraparesis/Paraplegia Quadriparesis/Quadriplegia Monoparesis/Monoplegia
Type Type Type Site
Spastic Complete Complete Upper limb
Flaccid Incomplete Incomplete Lower limb
Unable to determine Unable to Determine Unable to determine Laterality
Laterality Etiology Level Left
Left CVA, cerebral palsy, C1-C4 Right
Right injury, etc. C5-C7 Side
Unable to determine Unable to determine Dominant side
Side Etiology Nondominant side
Dominant side CVA, cerebral palsy, Etiology
Nondominant side injury, etc. CVA, cerebral palsy,
Unable to determine Functional quadriplegia injury, etc.
Etiology complete immobility due
CVA, cerebral palsy, severe physical
injury, etc. disability or frailty
Use of terms such as suspected, likely, concern for, or probable (associated with a specific diagnosis that is being evaluated, monitored, or treated as if it exists) are acceptable and can be coded in the inpatient setting, when documented at the
time of discharge.
Thank you,
Milli Mendoza RN BSN CCDS
CDI Specialist
please contact via tiger text
Please use your independent medical judgment in providing your response.
--- NOTE | 2024-02-01 16:19 | PTCARENOTE ---
Pt awake and alert, oriented to self, difficult to assess orientation d/t pt's expressive aphasia. Follows commands appropriately. Moves Lt arm /leg; pt states 'can't move' RUE/RLE. Pt resists q 2hr turning at times. VSS. Telemetry:NSR/SB with
first degree AVB. Currently on room air- pulse ox 95%, pt denies SOB. Abd large, soft, toll PO, appetite fair; no dysphagia noted. Incont soft/loose brown BM's. SPT P/I mod amts sl cloudy sandy urine, no leakage noted around site. IVF's NSS @
100 ml/hr infusing via Lt wrist site without sx of infiltration. Resting quietly at present, no c/o. Will continue to monitor.
[2024-02-01] MEDS: LOVENOX 30 MG SC (18:12)
[2024-02-01] MEDS: FLUSH (NSS) 1 FLUSH IV (18:13)
--- NOTE | 2024-02-01 18:14 | W.PN.HOSP.TC ---
Today's Communication/Plan
-
Continue antibiotics
Follow cultures
Assessment / Plan
Assessment / Plan
Physical Exam
General: Not in acute distress
HEENT: Normocephalic
Respiratory: Few coarse breath sounds appreciated over the right base.
Cardiac: S1/S2, Regular Rhythm and Murmur (III/ ALEJANDRO)
GI: Soft, Non Tender, Non Distended and Normal Bowel Sounds
Genito-urinary: Other (Suprapubic tube in place. No purulent drainage or surrounding erythema. Dark / sandy urine in device.)
Musculoskeletal: Other (Dependent edema in the RUE and RLE greater than the left.)
Neuro: Alert. Awake. Other (Dense R hemiparesis and expressive aphasia are unchanged. No new deficits appreciated.)

Renal Ultrasound, as per radiologist's report
'IMPRESSION:
1. Nonobstructive right nephrolithiasis.
2. Right renal cysts without suspicious features.
3. Urinary bladder decompressed with Lainez catheter in position.'
4. Cholelithiasis.

Assessment/Plan
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
RLL Pneumonia
Acute Hypoxemic Respiratory Insufficiency secondary to the above
Acute TME secondary to the above
Concern for CAUTI
Fever
Sepsis secondary to the above
- Patient presented with fever, bandemia, hypoxemia and CXR / clinical signs consistent with pneumonia.
- Evidence of life-threatening organ dysfunction in the form of acute TME and hypoxemia.
- Antibiotics with cefepime and doxycycline for now.
- Follow-up culture data / clinical course and adjust antibiotics as needed.
- Supportive care including mucolytics, IVFs, nebs, O2 support.
- Follow for clinical improvement / return to baseline mentation and functional status.
Right-Sided Kidney Stone
Neurogenic Bladder
Suprapubic Catheter
- Possible UTI based on UA results - though > 30 squamous cells in that sample.
- Abx as noted above and follow-up urine culture data.
- Renal Ultrasound Results noted
Right renal cysts without suspicious features
Cholelithiasis
- Noted on renal ultrasound January 31, 2024
ASCVD
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
Chronic Aphasia (as per patient's )
Wheelchair-bound
Chronic Weakness
- Stable. No new deficits.
- Continue current ASA, statin, BP control, etc.
- Supportive care including patient positioning, etc.
- OOB to chair when able.
CKD III
- Stable. Renal function is near known baseline/better
- Follow for any changes.
- Hold diuretic acutely with decreased urine output / sepsis.
Benign Hypertension
- Holding parameters for usual meds.
- Adjust regimen as needed for adequate BP control.
Chronic Macrocytic Anemia
- Likely anemia of chronic disease.
- Note also thrombocytosis which is similarly chronic -- was being tested for it outpatient with Dr. Allred's outpatient office
- Cell counts seem consistent with recent baseline.
- Recent B12 / folate assays have been unremarkable.
- Follow for any changes.
DVT Prophylaxis: Lovenox
Code Status: DNR
On January 31, 2024, I spoke with patient's inside patient's room, all questions and concerns were answered.
Anticipated Discharge: 24 - 48 hours
Subjective/Interval History
-
Date of Service: February 01, 2024
Objective Data
-
Labs:
Laboratory Results
02/01/24
06:35
WBC 8.5
Hgb 7.8 L
Hct 24.0 L
Plt Count 577 H D
Sodium 136
Potassium 4.3
Chloride 110 H
Carbon Dioxide 20 L
BUN 26 H
Creatinine 1.3
Glucose 97
Calcium 7.2 L
Vital Signs:
Vital Signs
Temp Pulse Resp BP Pulse Ox
98.5 F 62 20 133/54 95
02/01/24 15:55 02/01/24 15:55 02/01/24 15:55 02/01/24 15:55 02/01/24 16:19
I&O
01/31/24 02/01/24 02/02/24
06:59 06:59 06:59
Intake Total 2490 / 2490
Output Total 975 / 975
Balance 1515 / 1515
[2024-02-01] MEDS: LIPITOR 40 MG PO (21:29)
[2024-02-01] MEDS: SENOKOT 17.1999999999999993 MG PO (21:29)
[2024-02-02 03:07] VITALS: BP 136/57
[2024-02-02] MEDS: STERILE WATER FOR INJECTION 10 ML IV (05:36)
[2024-02-02] MEDS: MAXIPIME 2000 MG IV (05:37)
[2024-02-02 07:22] LABS: % Basophils 0.2 % (0-2); % Eosinophils 7.3 % (0-6); % Immature Granulocytes 1.1 % (0-0.5); % Lymphocytes 32.6 % (20.5-51.1); % Monocytes 2.7 % (1.7-9.3); % Neutrophils 56.1 % (42.2-75.2); Absolute Eosinophils 0.5 10^3/uL (0-0.7); Absolute Immature Granulocytes 0.1 10^3/uL (0-0.05); Absolute Lymphocytes 2.1 10^3/uL (1.2-3.4); Absolute Monocytes 0.2 10^3/uL (0.1-0.6); Absolute Neutrophils 3.6 10^3/uL (1.4-6.5); Hematocrit 21.7 % (39.0-52.0); Mean Corp Hgb Conc. 31.8 g/dL (33.0-37.0); Mean Corpuscular Volume 110.2 fL (80.0-94.0); Mean Platelet Volume 11.7 fL (7.4-10.4); Nucleated Red Blood Cells % 0 % (-); Platelet Count 551 10^3/uL (130-400); Red Blood Cell Count 1.97 10^6/uL (4.70-6.10); Red Cell Dist. Width 18.8 % (11.5-14.5); White Blood Cell Count 6.3 10^3/uL (4.8-10.8)
[2024-02-02 07:43] LABS: Hemoglobin 6.9 g/dL (13.0-18.0)
[2024-02-02 07:52] LABS: Blood Urea Nitrogen 24 mg/dl (9-20); Calcium 6.9 mg/dl (8.4-10.2); Carbon Dioxide 17 mmol/L (22-30); Chloride 113 mmol/L (98-107); Estimated Creatinine Clearance 48 ml/min; Glucose 88 mg/dl (70-99); Potassium 4.2 mmol/L (3.5-5.1); Sodium 137 mmol/L (135-145); eGFR > 60.00
--- NOTE | 2024-02-02 08:05 | W.PN.URO.CBU ---
Today's Communication / Plan
-
sp tube changed
discharge when cx's back and medically stable
Assessment / Plan
-
chronic sp tube
recurrent phimosis despite dorsal slit
UTi/pneumonia
sp tube changed
cleared for discharge urologically
asked to make outpt appointment to review options for recurrent phimosis
Diagnosis
-
Date of Service: February 02, 2024
-
Patient Diagnosis:
neurogenic bladder with chronic sp tube
phimosis
hx of kidney stones
Subjective
-
pt seems to be at baseline MS
urine has been clear
ucx pending
Objective
-
Vital Signs
Temp Pulse Resp BP Pulse Ox
97.4 F 61 19 136/57 93
02/02/24 03:07 02/02/24 03:07 02/02/24 03:07 02/02/24 03:07 02/02/24 03:07
Intake and Output
02/01/24 02/02/24 02/03/24
06:59 06:59 06:59
Intake Total 2490 / 2490 3530 / 3530
Output Total 975 / 975 800 / 800
Balance 1515 / 1515 2730 / 2730
Intake:
Oral fluids 1290 / 1290 1130 / 1130
IV fluids (Total) 1200 / 1200 2400 / 2400
Output:
Urine, Lainez 550 / 550
Suprapubic output 425 / 425 800 / 800
Laboratory Results
02/02/24 06:29
02/02/24 06:29
Physical Exam
-
General -no acute distress
Abdomen - soft, non-tender, sp tube in place
Genitalia - phimotic foreskin- gland and meatus visualized
[2024-02-02 08:14] VITALS: BP 146/64
[2024-02-02] MEDS: NSS IV (08:59)
[2024-02-02] MEDS: OSCAL CAL 500 500 MG PO (08:59)
[2024-02-02] MEDS: FEOSOL 325 MG PO (08:59)
[2024-02-02] MEDS: DESENEX/MITRAZOL/ZEASORB 1 APPLIC TOPICAL ×2 (08:59→21:21)
[2024-02-02] MEDS: PEPCID 10 MG PO (09:00)
[2024-02-02] MEDS: COLACE PO ×3 (09:00→21:21)
[2024-02-02] MEDS: LASIX 40 MG PO (09:00)
[2024-02-02] MEDS: ZESTRIL 40 MG PO (09:01)
[2024-02-02] MEDS: VITAMIN D3 (cholecalciferol) 125 MCG PO (09:01)
[2024-02-02] MEDS: ASPIRIN 325 MG PO (09:02)
[2024-02-02] MEDS: VITAMIN B-12 1000 MCG PO (09:02)
[2024-02-02] MEDS: VIBRAMYCIN 100 MG PO (09:02)
[2024-02-02] MEDS: PROTONIX IV 40 MG IV (09:03)
[2024-02-02] MEDS: NSS (PRESERVATIVE FREE) 10 ML IV (09:03)
--- NOTE | 2024-02-02 10:00 | PTCARENOTE ---
Went into assess pt this am, more drowsy short of breath, pulse ox 84-86%, Pt placed on oxygen via nasal cannula 3L now 92-94%. Lungs coarse with crackles at bases. IVF turned off MD made aware. When awake pt agitated yelling and swinging at staff.
Frequently removing oxygen. at bedside updated on plan of care, HOB elevated, care continues.
[2024-02-02 10:15] LABS: NT-proBNP 3430 pg/ml
[2024-02-02 10:55] LABS: Albumin 2.4 g/dl (3.5-5.0)
[2024-02-02 11:23] VITALS: BP 130/57
--- NOTE | 2024-02-02 13:40 | PTOTSP ---
Dysphagia Evaluation
Clinical bedside swallowing evaluation was limited by patient's verbal agitation and refusal. He accepted a single sip of liquid via straw with which he had a delayed cough and then refused additional PO. Nursing reported that patient has had
coughing with PO intake this date which was most notable with solids but tolerated medications in puree.
Will re-evaluate swallowing as able/appropriate when patient willing. Video swallow study may need to be considered given risk factors for dysphagia (i.e., CVA, GERD) and current admission with PNA.
Recommend:
1. Defer to MD for PO diet at this time given limited assessment
2. Essential medications whole in puree
3. Consider avoiding straws (as difficulty with straw noted in prior dysphagia evaluation in 2018)
4. Dysphagia follow up at the acute care level
[2024-02-02 13:42] LABS: % Basophils 0.1 % (0-2); % Eosinophils 6.5 % (0-6); % Immature Granulocytes 1.2 % (0-0.5); % Lymphocytes 30.1 % (20.5-51.1); % Monocytes 4.1 % (1.7-9.3); Absolute Eosinophils 0.5 10^3/uL (0-0.7); Absolute Immature Granulocytes 0.1 10^3/uL (0-0.05); Absolute Lymphocytes 2.1 10^3/uL (1.2-3.4); Absolute Monocytes 0.3 10^3/uL (0.1-0.6); Hematocrit 21.3 % (39.0-52.0); Hemoglobin 7.1 g/dL (13.0-18.0); Mean Corp Hgb Conc. 33.3 g/dL (33.0-37.0); Mean Corpuscular Hgb 35.3 pg (27.0-31.0); Mean Platelet Volume 11.6 fL (7.4-10.4); Nucleated Red Blood Cells % 0 % (-); Platelet Count 590 10^3/uL (130-400); Red Blood Cell Count 2.01 10^6/uL (4.70-6.10); Red Cell Dist. Width 18.9 % (11.5-14.5)
--- NOTE | 2024-02-02 14:28 | CON.ID ---
Consultation
-
Date/Time Consultation Requested: 02/02/24 12:01
Date/Time Consultation Performed: 02/02/24 14: 28
Requesting Provider: Dr Hamilton
Performing Provider: Dr Preciado
Reason for Consultation: RLL PNA, now possible developing LLL PNA. Antibiotics recommendations.
Chief Complaint / Past History
Chief Complaint
Fever, Altered Mental Status
History of Present Illness
Mr Armijo is an 88 year old male with history of CVA with R hemiparesis/aphasia, neurogenic bladder - suprapubic cath who presented here for fever and AMS. reported agitation/confusion/poor appetite. No nausea, vomiting or diarrhea. Urine
output declined.
Since arrival here single fever to 102.8 orally none since, BP stable, HR normal, saturating 96% on 3L, wbc peaked at 12.3 and 6.3 this AM, hgb 7.1 plt 590, no L shift in last 48 hrs, AEC 440, Cr 1.1, uncorrected Ca this AM notably 6.9, bnp 3400, ua
>100 wbc/hpf, covid ag neg, CXR today: Patchy bibasilar airspace disease, left greater than right, which may represent airspace consolidation and small pleural effusion. A developing pneumonia within the left lower lobe is within the differential.
renal US: nonobstructive renal stones, cholelithiasis. Sputum culture not ordered. Blood cultures no growth at 48 hrs, urine culture polymicrobial, flu screen negative, mrsa screen negative currently on cefepime doxycycline, EKG with normal QTc at
467
Past History
Additional Past Medical History:
ASCVD / CVA
Right Hemiparesis / Aphasia s/p CVA
Hypertension
Neurogenic Bladder
Nephrolithiasis
GERD
Anemia of Chronic Disease
Essential Thrombocytosis
CKD III
Additional Past Surgical History:
Suprapubic Catheter
Ureteroscopy / Stent
Allergy History:
vancomycin Allergy (Intermediate, Verified 01/31/24 00:24)
Hives
latex Allergy (Verified 01/31/24 00:24)
Unknown
Penicillins Allergy (Verified 01/31/24 00:24)
Swelling
Medications Reviewed: Yes
Social History
Tobacco: Non-Smoker
Alcohol: None
Drug: None
Family History
Family History: Not Pertinent
Review of Systems
Review of Systems
unable to obtain due to the condition of the patient
Vital Signs
Temp Pulse Resp BP Pulse Ox
98 F 67 20 130/57 96
02/02/24 11:23 02/02/24 11:23 02/02/24 11:23 02/02/24 11:23 02/02/24 11:56
Physical Exam
Physical Exam
Constitutional: No Acute Distress and Chronically Ill
Cardiovascular: Regular Rate and S1/S2; Negative Murmur or Rub
Pulmonary: Clear and Symmetric; Negative Wheezes, Rales or Rhonchi
Gastrointestinal: Soft, Non Tender, Non Distended and Normal Bowel Sounds
Genito-Urinary: Clear Urine
Extremities: Other (swollen R hand - likely chronic)
Skin: Warm and Dry; Negative Rash or Jaundice
Neurological: Negative Awake
Lab / Diagnostic Study Results
02/02/24 12:59
02/02/24 06:29
Abs Immat Gran (auto) 0.1 10^3/uL (0-0.05) H 02/02/24 06:29
Absolute Neuts (auto) 3.6 10^3/uL (1.4-6.5) 02/02/24 06:29
Absolute Lymphs (auto) 2.1 10^3/uL (1.2-3.4) 02/02/24 06:29
Absolute Monos (auto) 0.2 10^3/uL (0.1-0.6) 02/02/24 06:29
Absolute Basos (auto) 0.0 10^3/uL (0-0.2) 02/02/24 06:29
Total Counted 100 01/30/24 23:41
Immature Gran % 1.1 % (0-0.5) H 02/02/24 06:29
Neutrophils % 56.1 % (42.2-75.2) 02/02/24 06:29
Lymphocytes % 32.6 % (20.5-51.1) 02/02/24 06:29
Monocytes % 2.7 % (1.7-9.3) 02/02/24 06:29
Eosinophils % 7.3 % (0-6) H 02/02/24 06:29
Basophils % 0.2 % (0-2) 02/02/24 06:29
Abs Neuts (Manual) 8.2 10^3/uL (1.4-6.5) H 01/30/24 23:41
Segmented Neutrophils 65 % (42-75) 01/30/24 23:41
Band Neutrophils 14 % (0-3) H 01/30/24 23:41
Lymphocytes (Manual) 19 % (20-51) L 01/30/24 23:41
Eosinophils (Manual) 1 % (0-6) 01/30/24 23:41
Lactic Acid Cancelled 01/31/24 03:15
Ur Squamous Epith Cells >30 /LPF (Few) 01/30/24 23:18
Microbiology Results
Micro:
01/30/24 23:18 Urine Culture - Final
Urine
01/31/24 01:51 Blood Culture - Preliminary
Blood/Venous No Growth in 48 hours- Final report to follow
01/30/24 23:41 Blood Culture - Preliminary
Blood/Venous No Growth in 48 hours- Final report to follow
01/31/24 05:36 MRSA Screen - Final
Nose No Methicillin Resistant Staphylococcus aureus isolated.
01/30/24 23:41 Influenza Types A & B (JCARLOS) - Final
Nasal Swab Negative for Influenza A & B, NAAT
Negative results must be combined with clinical observations
and patient history.
Nucleic Acid Amplification test (NAAT)performed on the
[employer] platform.
Assessment / Plan
Pneumonia
GRAZYNA - resolving
Thrombocytosis - chronic
Colonized chronic suprapubic cath
- send sputum culture if able
- note resolved leukocytosis, minimal O2 requirements; my clinical impression is patient is improving. Note that infiltrates may progress somewhat after hydration, alternatively these could represent atelectasis which may be transient
- switched to levaquin 750 mg PO Q48 hrs to complete 7 day course through 04/07
- recheck QTc in the AM - so long as <500, plans are finalized
- wean O2 as able
- appreciate urology changing out suprapubic tube
follow up with PCP
[2024-02-02 15:32] LABS: White Blood Cell Count 6.9 10^3/uL (4.8-10.8)
[2024-02-02] MEDS: LEVAQUIN 750 MG PO (15:38)
[2024-02-02 16:14] VITALS: BP 137/58
[2024-02-02] MEDS: LOVENOX 30 MG SC (17:56)
--- NOTE | 2024-02-02 18:14 | W.PN.HOSP.TC ---
Today's Communication/Plan
-
CHF workup/echo in setting of hypoxia and elevated BNP
Resumed home Lasix
Appreciate ID: [email or web address] Christelle
Assessment / Plan
Assessment / Plan
Physical Exam
General: Not in acute distress
HEENT: Normocephalic
Respiratory: Few coarse breath sounds appreciated over the right base.
Cardiac: S1/S2, Regular Rhythm and Murmur (III/ ALEJANDRO)
GI: Soft, Non Tender, Non Distended and Normal Bowel Sounds
Genito-urinary: Other (Suprapubic tube in place. No purulent drainage or surrounding erythema. Dark / sandy urine in device.)
Musculoskeletal: Other (Dependent edema in the RUE and RLE greater than the left.)
Neuro: Alert. Awake. Other (Dense R hemiparesis and expressive aphasia are unchanged. No new deficits appreciated.)

Renal Ultrasound, as per radiologist's report
'IMPRESSION:
1. Nonobstructive right nephrolithiasis.
2. Right renal cysts without suspicious features.
3. Urinary bladder decompressed with Lainez catheter in position.'
4. Cholelithiasis.

Assessment/Plan
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
RLL Pneumonia
Acute Hypoxemic Respiratory Insufficiency secondary to the above
Acute TME secondary to the above
Colonized Chronic Suprapubic Cath
Fever
Sepsis secondary to the above
- Patient presented with fever, bandemia, hypoxemia and CXR / clinical signs consistent with pneumonia.
- Evidence of life-threatening organ dysfunction in the form of acute TME and hypoxemia.
- Status post cefepime and doxycycline
- ID consulted, recommendations appreciated
- Complete Levaquin 750 mg PO Q48 hrs to complete 7 day course through 02/05 (recheck QTc and as long as QTc <500 then finish course of Levaquin)
- Follow-up culture data / clinical course and adjust antibiotics as needed.
- Supportive care including mucolytics, IVFs, nebs, O2 support.
- Follow for clinical improvement / return to baseline mentation and functional status.
- Worsening hypoxia on 02/02/24 --> resumed home Lasix, ordered proBNP, check echocardiogram
Right-Sided Kidney Stone
Neurogenic Bladder
Suprapubic Catheter
- Renal Ultrasound Results noted
- Suprapubic catheter changed on February 02, 2024
Right renal cysts without suspicious features
Cholelithiasis
- Noted on renal ultrasound January 31, 2024
ASCVD
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
Chronic Aphasia (as per patient's )
Wheelchair-bound
Chronic Weakness
- Stable. No new deficits.
- Continue current ASA, statin, BP control, etc.
- Supportive care including patient positioning, etc.
- OOB to chair when able.
CKD III
- Stable. Renal function is near known baseline/better
- Follow for any changes.
Benign Hypertension
- Holding parameters for usual meds.
- Adjust regimen as needed for adequate BP control.
Chronic Macrocytic Anemia
- Likely anemia of chronic disease.
- Note also thrombocytosis which is similarly chronic -- was being tested for it outpatient with Dr. Allred's outpatient office
- Cell counts seem consistent with recent baseline.
- Recent B12 / folate assays have been unremarkable.
- Follow for any changes.
- Patient's consented patient for blood transfusion, if needed, given patient's reduced insight/decision-making capacity
Hypocalcemia
-Home Calcium and Vitamin D
-AM labs
DVT Prophylaxis: Lovenox
Code Status: DNR
On January 31, 2024, I spoke with patient's inside patient's room, all questions and concerns were answered.
I spoke with patient's over the phone today.
Anticipated Discharge: 24 - 48 hours
Subjective/Interval History
-
Date of Service: February 02, 2024
Patient was seen and examined. He was more hypoxic this morning requiring oxygen. He denied any new significant symptoms or complaints.
Objective Data
-
Labs:
Laboratory Results
02/02/24 02/02/24
06:29 12:59
WBC 6.3 6.9
Hgb 6.9 L* 7.1 L
Hct 21.7 L 21.3 L
Plt Count 551 H 590 H
Sodium 137
Potassium 4.2
Chloride 113 H
Carbon Dioxide 17 L
BUN 24 H
Creatinine 1.1
Glucose 88
Calcium 6.9 L*
Vital Signs:
Vital Signs
Temp Pulse Resp BP Pulse Ox
98.2 F 54 20 137/58 99
02/02/24 16:14 02/02/24 16:14 02/02/24 16:14 02/02/24 16:14 02/02/24 16:14
I&O
02/01/24 02/02/24 02/03/24
06:59 06:59 06:59
Intake Total 2490 / 2490 3530 / 3530
Output Total 975 / 975 800 / 800
Balance 1515 / 1515 2730 / 2730
[2024-02-02 19:53] VITALS: BP 154/71
[2024-02-02] MEDS: SENOKOT PO (21:22)
[2024-02-02] MEDS: LIPITOR 40 MG PO (21:22)
[2024-02-02 23:48] VITALS: BP 159/69
[2024-02-03 03:37] VITALS: BP 147/66
[2024-02-03 07:08] VITALS: BMI 28.3
[2024-02-03 08:01] VITALS: BP 160/64
[2024-02-03 08:01] LABS: % Basophils 0.1 % (0-2); % Eosinophils 6.3 % (0-6); % Immature Granulocytes 1.5 % (0-0.5); % Lymphocytes 27.9 % (20.5-51.1); % Monocytes 3.5 % (1.7-9.3); % Neutrophils 60.7 % (42.2-75.2); Absolute Eosinophils 0.5 10^3/uL (0-0.7); Absolute Immature Granulocytes 0.1 10^3/uL (0-0.05); Absolute Monocytes 0.3 10^3/uL (0.1-0.6); Absolute Neutrophils 4.3 10^3/uL (1.4-6.5); Hematocrit 22.8 % (39.0-52.0); Hemoglobin 7.6 g/dL (13.0-18.0); Mean Corp Hgb Conc. 33.3 g/dL (33.0-37.0); Mean Corpuscular Hgb 35.3 pg (27.0-31.0); Mean Platelet Volume 11.5 fL (7.4-10.4); Nucleated Red Blood Cells % 0 % (-); Platelet Count 583 10^3/uL (130-400); Red Blood Cell Count 2.15 10^6/uL (4.70-6.10); Red Cell Dist. Width 18.3 % (11.5-14.5); White Blood Cell Count 7.2 10^3/uL (4.8-10.8)
[2024-02-03 08:22] LABS: Blood Urea Nitrogen 24 mg/dl (9-20); Calcium 7.5 mg/dl (8.4-10.2); Carbon Dioxide 19 mmol/L (22-30); Chloride 110 mmol/L (98-107); Estimated Creatinine Clearance 44 ml/min; Glucose 98 mg/dl (70-99); Potassium 4.2 mmol/L (3.5-5.1); Sodium 137 mmol/L (135-145); eGFR 58.17
[2024-02-03] MEDS: VITAMIN D3 (cholecalciferol) 125 MCG PO (08:53)
[2024-02-03] MEDS: FEOSOL 325 MG PO (08:54)
[2024-02-03] MEDS: PROTONIX 40 MG PO (08:54)
[2024-02-03] MEDS: LASIX PO (08:55)
[2024-02-03] MEDS: DESENEX/MITRAZOL/ZEASORB 1 APPLIC TOPICAL ×2 (08:55→20:25)
[2024-02-03] MEDS: OSCAL CAL 500 500 MG PO (08:55)
[2024-02-03] MEDS: ASPIRIN 325 MG PO (08:55)
[2024-02-03] MEDS: COLACE PO ×2 (08:55→20:25)
[2024-02-03] MEDS: ZESTRIL 40 MG PO (08:56)
[2024-02-03] MEDS: PEPCID 10 MG PO (08:56)
[2024-02-03] MEDS: VITAMIN B-12 1000 MCG PO (08:56)
[2024-02-03] MEDS: LASIX 40 MG IV ×2 (09:50→15:58)
[2024-02-03 11:30] VITALS: BP 153/61
--- NOTE | 2024-02-03 14:01 | PTOTSP ---
ST Follow-Up
Pt presents with slight to mild oropharyngeal dysphagia. Pt would benefit from additional objective testing to gather more information about his current airway protection to determine if his PNA was caused by aspiration.
Recommendations:
- Continue with regular solids (choose softer items), thin liquids, meds in applesauce.
- Aspiration precautions: Pt must be fully awake/alert and upright for all PO intake; small bites/sips; alternate bites/sips; encourage slow intake rate; d/c PO intake if pt becomes in respiratory distress.
- MARKETING OPERATIONS ASSOCIATE to f/u again tomorrow at bedside to re-assess pt's tolerance of PO while is present and determine whether the pt would be agreeable to a VFSS.
--- NOTE | 2024-02-03 14:36 | W.PN.ID1 ---
Date of Service
Date of Service: February 03, 2024
Today's Communication
Continue antibiotics.
Assessment / Plan
Pneumonia
GRAZYNA - resolving
Thrombocytosis - chronic
Colonized chronic suprapubic cath
- send sputum culture if able
- note resolved leukocytosis, minimal O2 requirements; my clinical impression is patient is improving.
- Continue Levaquin 750 mg PO Q48 hrs to complete 7 day course through 04/07
- QTc today = 449
- wean O2 as able
- appreciate urology changing out suprapubic tube
follow up with PCP
Chief Complaint
-: Pneumonia
Subjective / Review of Systems
Review of Systems: No Fever and No Chills
Vital Signs / Physical Exam
Vital Signs
Vital Signs
Temp Pulse Resp BP Pulse Ox
99.1 F 58 28 153/61 96
02/03/24 11:30 02/03/24 11:30 02/03/24 11:30 02/03/24 11:30 02/03/24 11:30
Physical Exam
Constitutional: No Acute Distress, Comfortable, Chronically Ill and Non-toxic
Eyes: Sclera Anicteric
Cardiovascular: S1/S2; Negative S3/S4
Pulmonary: Non Labored
Gastrointestinal: Non Distended
Neurological: Awake and Alert
Psychological: Calm
Objective Data
Lab Data
Lab Results
02/03/24 07:47
02/03/24 07:47
Estimated Creat Clear 44 ml/min 02/03/24 07:47
Lactic Acid Cancelled 01/31/24 03:15
Total Bilirubin 0.7 mg/dl (0.2-1.3) 01/30/24 23:41
AST 34 U/L (17-59) 01/30/24 23:41
ALT 20 U/L (0-50) 01/30/24 23:41
Alkaline Phosphatase 77 U/L (38-126) 01/30/24 23:41
Most recent labs reviewed.
Micro Results:
01/31/24 01:51 Blood Culture - Preliminary
Blood/Venous No Growth in 72 hours- Final report to follow
01/30/24 23:41 Blood Culture - Preliminary
Blood/Venous No Growth in 72 hours- Final report to follow
01/30/24 23:18 Urine Culture - Final
Urine
01/31/24 05:36 MRSA Screen - Final
Nose No Methicillin Resistant Staphylococcus aureus isolated.
01/30/24 23:41 Influenza Types A & B (JCARLOS) - Final
Nasal Swab Negative for Influenza A & B, NAAT
Negative results must be combined with clinical observations
and patient history.
Nucleic Acid Amplification test (NAAT)performed on the
[employer] platform.
--- NOTE | 2024-02-03 15:32 | W.PN.HOSP.TC ---
Today's Communication/Plan
-
Await echo results
Due to weight gain, with hypoxia and elevated proBNP, ordered IV Lasix
Continue antibiotics
Appreciate ID
Assessment / Plan
Assessment / Plan
Physical Exam
General: Not in acute distress
HEENT: Normocephalic
Respiratory: Few coarse breath sounds appreciated over the right base.
Cardiac: S1/S2, Regular Rhythm and Murmur (III/ ALEJANDRO)
GI: Soft, Non Tender, Non Distended and Normal Bowel Sounds
Genito-urinary: Other (Suprapubic tube in place. No purulent drainage or surrounding erythema. Dark / sandy urine in device.)
Musculoskeletal: Other (Dependent edema in the RUE and RLE greater than the left.)
Neuro: Alert. Awake. Other (Dense R hemiparesis and expressive aphasia are unchanged. No new deficits appreciated.)

Renal Ultrasound, as per radiologist's report
'IMPRESSION:
1. Nonobstructive right nephrolithiasis.
2. Right renal cysts without suspicious features.
3. Urinary bladder decompressed with Lainez catheter in position.'
4. Cholelithiasis.

Assessment/Plan
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
RLL Pneumonia
Acute Hypoxemic Respiratory Insufficiency secondary to the above
Acute TME secondary to the above
Colonized Chronic Suprapubic Cath
Fever
Sepsis secondary to the above
- Patient presented with fever, bandemia, hypoxemia and CXR / clinical signs consistent with pneumonia.
- Evidence of life-threatening organ dysfunction in the form of acute TME and hypoxemia.
- Status post cefepime and doxycycline
- ID consulted, recommendations appreciated
- Complete Levaquin 750 mg PO Q48 hrs to complete 7 day course through 02/05
- Follow-up culture data / clinical course and adjust antibiotics as needed.
- Supportive care including mucolytics, IVFs, nebs, O2 support.
- Follow for clinical improvement / return to baseline mentation and functional status.
- Worsening hypoxia on 02/02/24, weight gain noted --> ordered IV Lasix, proBNP elevated, check echocardiogram
Right-Sided Kidney Stone
Neurogenic Bladder
Suprapubic Catheter
- Renal Ultrasound Results noted
- Suprapubic catheter changed on February 02, 2024
Right renal cysts without suspicious features
Cholelithiasis
- Noted on renal ultrasound January 31, 2024
ASCVD
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
Chronic Aphasia (as per patient's )
Wheelchair-bound
Chronic Weakness
- Stable. No new deficits.
- Continue current ASA, statin, BP control, etc.
- Supportive care including patient positioning, etc.
- OOB to chair when able.
CKD III
- Stable. Renal function is near known baseline/better
- Follow for any changes.
Benign Hypertension
- Holding parameters for usual meds.
- Adjust regimen as needed for adequate BP control.
Chronic Macrocytic Anemia
- Likely anemia of chronic disease.
- Note also thrombocytosis which is similarly chronic -- was being tested for it outpatient with Dr. Allred's outpatient office
- Cell counts seem consistent with recent baseline.
- Recent B12 / folate assays have been unremarkable.
- Follow for any changes.
- Patient's consented patient for blood transfusion, if needed, given patient's reduced insight/decision-making capacity
Hypocalcemia
-Home Calcium and Vitamin D
-AM labs
DVT Prophylaxis: Lovenox
Code Status: DNR
On January 31, 2024, I spoke with patient's inside patient's room, all questions and concerns were answered.
I spoke with patient's over the phone on February 03, 2024.
Anticipated Discharge: 24 - 48 hours
Subjective/Interval History
-
Date of Service: February 03, 2024
Patient was seen and examined. No new symptoms or complaints reported, nurse reported he is doing better today.
Objective Data
-
Labs:
Laboratory Results
02/03/24
07:47
WBC 7.2
Hgb 7.6 L
Hct 22.8 L
Plt Count 583 H
Sodium 137
Potassium 4.2
Chloride 110 H
Carbon Dioxide 19 L
BUN 24 H
Creatinine 1.2
Glucose 98
Calcium 7.5 L
Vital Signs:
Vital Signs
Temp Pulse Resp BP Pulse Ox
99.1 F 58 28 153/61 96
02/03/24 11:30 02/03/24 11:30 02/03/24 11:30 02/03/24 11:30 02/03/24 11:30
I&O
02/02/24 02/03/24 02/04/24
06:59 06:59 06:59
Intake Total 3530 / 3530 480 / 480
Output Total 800 / 800 450 / 1700 1250 / 1250
Balance 2730 / 2730 30 / -1220 -1250 / -1250
[2024-02-03 15:41] VITALS: BP 150/57
--- NOTE | 2024-02-03 16:43 | CM ---
Pt on oxygen 2 liters Pox 97%.
Pt confused patient pleasant.
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
Lela RN Earle [phone] said he is assisted to total care with all activities of daily living.
He transfers to wheelchair and can self propel himself.He had a stroke is aphasic.
Ofe requested ambulance at [place] to return to [facility].
Lela
report [phone]
fax [phone]
PLAN Return to [facility]
[2024-02-03] MEDS: LOVENOX 30 MG SC (17:40)
[2024-02-03 19:51] VITALS: BP 146/63
[2024-02-03] MEDS: SENOKOT PO (20:25)
[2024-02-03] MEDS: LIPITOR 40 MG PO (20:27)
[2024-02-03 23:39] VITALS: BP 146/64
[2024-02-04 03:58] VITALS: BP 140/70
[2024-02-04 06:18] VITALS: BMI 27.5
[2024-02-04 07:55] VITALS: BP 147/64
--- NOTE | 2024-02-04 10:34 | W.PN.ID1 ---
Date of Service
Date of Service: February 04, 2024
Today's Communication
Continue abx.
Assessment / Plan
Pneumonia
GRAZYNA - resolving
Thrombocytosis - chronic
Colonized chronic suprapubic cath
- send sputum culture if able
- note resolved leukocytosis, minimal O2 requirements; my clinical impression is patient is improving.
- Continue Levaquin 750 mg PO Q48 hrs to complete 7 day course through 04/07
- QTc = 449 (02/03/2024)
- wean O2 as able
follow up with PCP
Chief Complaint
-: Pneumonia
Subjective / Review of Systems
Review of Systems: No Fever, No Chills, No Cough and No Chest Pain
Vital Signs / Physical Exam
Vital Signs
Vital Signs
Temp Pulse Resp BP Pulse Ox
98.6 F 58 18 147/64 95
02/04/24 07:55 02/04/24 07:55 02/04/24 07:55 02/04/24 07:55 02/04/24 07:55
Physical Exam
Constitutional: No Acute Distress, Comfortable and Non-toxic
Cardiovascular: S1/S2; Negative S3/S4
Pulmonary: Non Labored; Negative Wheezes or Rales
Gastrointestinal: Soft, Non Tender and Non Distended
Neurological: Awake and Alert
Psychological: Calm
Objective Data
Lab Data
Estimated Creat Clear 44 ml/min 02/03/24 07:47
Lactic Acid Cancelled 01/31/24 03:15
Total Bilirubin 0.7 mg/dl (0.2-1.3) 01/30/24 23:41
AST 34 U/L (17-59) 01/30/24 23:41
ALT 20 U/L (0-50) 01/30/24 23:41
Alkaline Phosphatase 77 U/L (38-126) 01/30/24 23:41
Most recent labs reviewed.
Micro Results:
01/31/24 01:51 Blood Culture - Preliminary
Blood/Venous No Growth in 4 days- Final report to follow
01/30/24 23:41 Blood Culture - Preliminary
Blood/Venous No Growth in 4 days- Final report to follow
01/30/24 23:18 Urine Culture - Final
Urine
01/31/24 05:36 MRSA Screen - Final
Nose No Methicillin Resistant Staphylococcus aureus isolated.
01/30/24 23:41 Influenza Types A & B (JCARLOS) - Final
Nasal Swab Negative for Influenza A & B, NAAT
Negative results must be combined with clinical observations
and patient history.
Nucleic Acid Amplification test (NAAT)performed on the
[employer] platform.
[2024-02-04] MEDS: ZESTRIL 40 MG PO (10:52)
[2024-02-04] MEDS: PROTONIX 40 MG PO (10:52)
[2024-02-04] MEDS: VITAMIN B-12 1000 MCG PO (10:52)
[2024-02-04] MEDS: ASPIRIN 325 MG PO (10:53)
[2024-02-04] MEDS: PEPCID 10 MG PO (10:53)
[2024-02-04] MEDS: VITAMIN D3 (cholecalciferol) 125 MCG PO (10:53)
[2024-02-04] MEDS: FEOSOL 325 MG PO (10:53)
[2024-02-04] MEDS: COLACE 100 MG PO ×2 (10:54)
[2024-02-04] MEDS: DESENEX/MITRAZOL/ZEASORB 1 APPLIC TOPICAL (10:54)
[2024-02-04] MEDS: OSCAL CAL 500 500 MG PO (10:54)
[2024-02-04 11:48] VITALS: BP 164/72
--- NOTE | 2024-02-04 12:09 | CM ---
indicated pt ready for return to [facility] care at [facility].
Pt on oxygen 2 liters Pox 96% but weaning.
Pt confused patient pleasant.
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
Ofe requested ambulance at [place] to return to [facility].Medical nec form completed.
[facility]
report [phone]
fax [phone]
PLAN Return to [facility]
[2024-02-04 13:08] LABS: % Basophils 0.1 % (0-2); % Eosinophils 5.9 % (0-6); % Immature Granulocytes 1.5 % (0-0.5); % Lymphocytes 32.9 % (20.5-51.1); % Monocytes 3.6 % (1.7-9.3); Absolute Eosinophils 0.4 10^3/uL (0-0.7); Absolute Immature Granulocytes 0.1 10^3/uL (0-0.05); Absolute Lymphocytes 2.5 10^3/uL (1.2-3.4); Absolute Monocytes 0.3 10^3/uL (0.1-0.6); Absolute Neutrophils 4.2 10^3/uL (1.4-6.5); Hematocrit 23.2 % (39.0-52.0); Hemoglobin 7.7 g/dL (13.0-18.0); Mean Corp Hgb Conc. 33.2 g/dL (33.0-37.0); Mean Corpuscular Volume 105.5 fL (80.0-94.0); Mean Platelet Volume 11.7 fL (7.4-10.4); Nucleated Red Blood Cells % 0 % (-); Platelet Count 679 10^3/uL (130-400); Red Cell Dist. Width 18.3 % (11.5-14.5); White Blood Cell Count 7.5 10^3/uL (4.8-10.8)
[2024-02-04 13:18] LABS: Blood Urea Nitrogen 21 mg/dl (9-20); Calcium 7.8 mg/dl (8.4-10.2); Carbon Dioxide 22 mmol/L (22-30); Chloride 106 mmol/L (98-107); Estimated Creatinine Clearance 41 ml/min; Glucose 102 mg/dl (70-99); Potassium 4.1 mmol/L (3.5-5.1); Sodium 137 mmol/L (135-145); eGFR 52.84
--- NOTE | 2024-02-04 13:51 | W.PN.HOSP.TC ---
Today's Communication/Plan
-
Discharge today
Assessment / Plan
Assessment / Plan
Physical Exam
General: Not in acute distress
HEENT: Normocephalic
Respiratory: Few coarse breath sounds appreciated over the right base.
Cardiac: S1/S2, Regular Rhythm and Murmur (III/ ALEJANDRO)
GI: Soft, Non Tender, Non Distended and Normal Bowel Sounds
Genitourinary: Other (Suprapubic tube in place)
Musculoskeletal: Other (Dependent edema in the RUE and RLE greater than the left.)
Neuro: Alert. Awake. Other (Dense R hemiparesis and expressive aphasia are unchanged. No new deficits appreciated.)

Renal Ultrasound, as per radiologist's report
'IMPRESSION:
1. Nonobstructive right nephrolithiasis.
2. Right renal cysts without suspicious features.
3. Urinary bladder decompressed with Lainez catheter in position.'
4. Cholelithiasis.
Echocardiogram results, as per flask carrier's report
'CONCLUSIONS
Normal left ventricular size, wall thickness and systolic function.
LV ejection fraction is 71% by Stanley's method of discs.
Diastolic function indeterminate.
Normal right ventricular size and function.
Trace mitral regurgitation.
Calcified aortic valve.
Thickened aortic valve with restricted leaflet motion.
Peak/mean gradients across the aortic valve are 19/10 mmHg.
Using an LVOT diameter of 2.2 cm.
Mild to moderate tricuspid regurgitation.
Estimated pulmonary artery pressure of 42 mmHg, assuming a right atrial
pressure of 3 mmHg.
Normal pericardium without effusion.
The IVC is of normal size and demonstrates normal respiratory variation.
Dilated aortic root.
No prior echocardiogram available for comparison.........Mild to moderate aortic stenosis'

Assessment/Plan
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
RLL Pneumonia
Acute Hypoxemic Respiratory Insufficiency secondary to the above
Acute TME secondary to the above
Colonized Chronic Suprapubic Cath
Fever
Sepsis secondary to the above
- Patient presented with fever, bandemia, hypoxemia and CXR / clinical signs consistent with pneumonia.
- Evidence of life-threatening organ dysfunction in the form of acute TME and hypoxemia.
- Status post cefepime and doxycycline
- ID consulted, recommendations appreciated
- Complete Levaquin 750 mg PO Q48 hrs to complete 7 day course through 02/05
- Follow-up culture data / clinical course and adjust antibiotics as needed.
- Supportive care including mucolytics, IVFs, nebs, O2 support.
- Follow for clinical improvement / return to baseline mentation and functional status.
- Worsening hypoxia on 02/02/24, weight gain noted --> ordered IV Lasix, proBNP elevated, checked echocardiogram --> hypoxia and weight improved
Right-Sided Kidney Stone
Neurogenic Bladder
Suprapubic Catheter
Recurrent phimosis
- Renal Ultrasound Results noted
- Suprapubic catheter changed on February 02, 2024
- Outpatient urology follow-up with urologist Dr. Terry Parks
Right renal cysts without suspicious features
Cholelithiasis
- Noted on renal ultrasound January 31, 2024
ASCVD
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
Chronic Aphasia (as per patient's )
Wheelchair-bound
Chronic Weakness
- Stable. No new deficits.
- Continue current ASA, statin, BP control, etc.
- Supportive care including patient positioning, etc.
- OOB to chair when able.
CKD III
- Stable. Renal function is near known baseline/better
- Follow for any changes.
Benign Hypertension
- Holding parameters for usual meds.
- Adjust regimen as needed for adequate BP control.
Chronic Macrocytic Anemia
- Likely anemia of chronic disease.
- Note also thrombocytosis which is similarly chronic -- was being tested for it outpatient with Dr. Allred's outpatient office
- Cell counts seem consistent with recent baseline.
- Recent B12 / folate assays have been unremarkable.
- Follow for any changes.
- Patient's consented patient for blood transfusion, if needed, given patient's reduced insight/decision-making capacity
- However, no blood transfusions needed during this hospitalization
Hypocalcemia
-Continue home Calcium and Vitamin D
-AM labs
DVT Prophylaxis: Lovenox
Code Status: DNR
On January 31, 2024, I spoke with patient's inside patient's room, all questions and concerns were answered.
I spoke with patient's over the phone on February 03, 2024.
More than 30 minutes spent in discharge including
Final examination of the patient
Summarizing hospital stay
Instructions for continuing care to all relevant caregivers
Preparation of discharge records, prescriptions, and referral forms
Total time spent (in minutes): 39
Anticipated Discharge: Today
Subjective/Interval History
-
Date of Service: February 04, 2024
Patient was seen and examined. He was off oxygen, no new symptoms or complaints reported.
Objective Data
-
Labs:
Laboratory Results
02/04/24
12:35
WBC 7.5
Hgb 7.7 L
Hct 23.2 L
Plt Count 679 H
Sodium 137
Potassium 4.1
Chloride 106
Carbon Dioxide 22
BUN 21 H
Creatinine 1.3
Glucose 102 H
Calcium 7.8 L
Vital Signs:
Vital Signs
Temp Pulse Resp BP Pulse Ox
97.6 F 60 22 164/72 94
02/04/24 11:48 02/04/24 11:48 02/04/24 11:48 02/04/24 11:48 02/04/24 11:48
I&O
02/03/24 02/04/24 02/05/24
06:59 06:59 06:59
Intake Total 480 / 480 480 / 480
Output Total 450 / 1700 5350 / 5350
Balance 30 / -1220 -4870 / -4870
[2024-02-04 15:06] VITALS: BP 137/60
--- NOTE | 2024-02-04 15:11 | W.DS.TRANS ---
DC Summary - [employer]
-
Discharge Instructions:
Discharge Diagnosis/Procedures Right Lower Lobe Pneumonia
Acute Hypoxemic Respiratory Insufficiency
secondary to the above
Acute Encephalopathy secondary to the above
Colonized Chronic Suprapubic Cath
Fever
Sepsis
Right-Sided Kidney Stone
Neurogenic Bladder
Suprapubic Catheter
Recurrent phimosis
Right renal cysts without suspicious features
Cholelithiasis
Atherosclerotic Cardiovascular Disease
Right Hemiparesis / Aphasia as Late Effect of
Cerebrovascular Accident
Chronic Aphasia (as per patient's )
Wheelchair-bound
Chronic Weakness
CKD III
Benign Hypertension
Chronic Macrocytic Anemia
Hypocalcemia
Echocardiogram findings (as per care services manager's
report):
Mild to moderate aortic stenosis
Trace mitral regurgitation.
Calcified aortic valve.
Thickened aortic valve with restricted leaflet
motion.
Peak/mean gradients across the aortic valve are
19/10 mmHg.
Using an LVOT diameter of 2.2 cm.
Mild to moderate tricuspid regurgitation.
Estimated pulmonary artery pressure of 42 mmHg,
assuming a right atrial
pressure of 3 mmHg.
Diet Other diet
Additional Diets Continue with regular solids (choose softer
items), thin liquids, meds in applesauce.
Instructions:
Stand-Alone Forms:
Changes to Home Medications: Yes
Discharge Medications:
DC Medications w/original date entered in [employer]
acetaminophen 325 mg capsule (Tylenol) 650 mg PO Q4HPRN PRN mild pain, T>100.4 05/03/23
aspirin 325 mg tablet 325 mg PO DAILY Blood Clot Prevention/Tx 05/03/23
atorvastatin 40 mg tablet 40 mg PO HS High Cholesterol 05/03/23
bisacodyl 10 mg rectal suppository 10 mg CA DAILYPRN PRN no BM after MOM 05/03/23
docusate sodium 100 mg capsule (Colace) 100 mg PO MOWEFR Constipation 05/03/23
famotidine 10 mg tablet 10 mg PO DAILY Gastrointestinal Issue 05/03/23
ferrous gluconate 324 mg (37.5 mg iron) tablet 324 mg PO DAILY Supplement 05/03/23
furosemide 20 mg tablet 40 mg PO DAILY Fluid Retention/Swelling 05/03/23
magnesium hydroxide 400 mg/5 mL oral suspension (Milk of Magnesia) 30 ml PO HSPRN PRN constipation 05/03/23
nifedipine 30 mg tablet,extended release 24 hr (Procardia XL) 30 mg PO DAILY #14 tabs 05/09/23
lisinopril 40 mg tablet 40 mg PO DAILY Blood Pressure 05/26/23
calcium carbonate 500 mg PO DAILY Supplement 01/31/24
cholecalciferol (vitamin D3) 125 mcg (5,000 unit) tablet (Vitamin D3) 125 mcg PO DAILY Supplement 01/31/24
cyanocobalamin (vitamin B-12) 1,000 mcg tablet,extended release (Vitamin B-12 ER) 1,000 mcg PO DAILY Supplement 01/31/24
levofloxacin 750 mg tablet 750 mg PO Q48H #1 tab 02/04/24
sennosides 8.6 mg tablet (Senna Laxative) 17.2 mg (2 x 8.6 mg) PO HS #60 tabs 02/04/24
Home Medication Changes
Levofloxacin and Senna Laxative are new medications.
Pending Results: Yes
Additional Pending Results:
Final results of blood cultures
Total time spent discharging patient (in min): 39
[2024-02-04] MEDS: LEVAQUIN 750 MG PO (15:33)
[2024-02-04] MEDS: LASIX 40 MG IV (15:34)
== END 2024-02-04 16:32 | DRG 698 ==
LOC: 4 EAST ACU 03:34
PROVIDERS: ADMITTING PHYSICIAN Hospitalist; ATTENDING PHYSICIAN Hospitalist; CONSULT PHYSICIAN Student in an Organized Health Care Education/Training Program; CONSULT PHYSICIAN Urology; EMERGENCY PHYSICIAN Student in an Organized Health Care Education/Training Program; FAMILY PHYSICIAN Student in an Organized Health Care Education/Training Program
DX: T83.511A Infection and inflammatory reaction due to indwelling urethral catheter, initial encounter (principal); A41.9 Sepsis, unspecified organism; J18.9 Pneumonia, unspecified organism; G92.8 Other toxic encephalopathy; R53.2 Functional quadriplegia; N39.0 Urinary tract infection, site not specified; Y73.8 Miscellaneous gastroenterology and urology devices associated with adverse incidents, not elsewhere classified; I12.9 Hypertensive chronic kidney disease with stage 1 through stage 4 chronic kidney disease, or unspecified chronic kidney disease; N18.30 Chronic kidney disease, stage 3 unspecified; D64.9 Anemia, unspecified; D75.839 Thrombocytosis, unspecified; N31.9 Neuromuscular dysfunction of bladder, unspecified; N47.1 Phimosis; R09.02 Hypoxemia; N20.0 Calculus of kidney; K80.20 Calculus of gallbladder without cholecystitis without obstruction; I69.320 Aphasia following cerebral infarction
CPT/HCPCS: 71045; 76770; 80048; 80053; 81003; 81015; 82040; 83605; 83880; 85025; 85027; 87040; 87070; 87086; 87502; 87811; 92526; 92610; 93005; 93306; 96374; 96375; 99285; J2020

== ENCOUNTER → 2024-03-13 09:43 | Outpatient (REF) | payer MEDICARE, OTHER, SELFPAY ==
[2024-03-13 11:00] LABS: Hematocrit 24.5 % (39.0-52.0); Hemoglobin 7.7 g/dL (13.0-18.0); Mean Corp Hgb Conc. 31.4 g/dL (33.0-37.0); Mean Corpuscular Hgb 33.8 pg (27.0-31.0); Mean Corpuscular Volume 107.5 fL (80.0-94.0); Mean Platelet Volume 11.1 fL (7.4-10.4); Platelet Count 761 10^3/uL (130-400); Red Blood Cell Count 2.28 10^6/uL (4.70-6.10); Red Cell Dist. Width 20.6 % (11.5-14.5); White Blood Cell Count 9.4 10^3/uL (4.8-10.8)
[2024-03-13 11:27] LABS: Blood Urea Nitrogen 23 mg/dl (9-20); Calcium 8.1 mg/dl (8.4-10.2); Carbon Dioxide 24 mmol/L (22-30); Chloride 105 mmol/L (98-107); Glucose 81 mg/dl (70-99); Potassium 4.7 mmol/L (3.5-5.1); Sodium 136 mmol/L (135-145); eGFR 48.34
== END ==
LOC: OLABN 09:43
PROVIDERS: ATTENDING PHYSICIAN Student in an Organized Health Care Education/Training Program
DX: I10 Essential (primary) hypertension (principal)
CPT/HCPCS: 36415; 80048; 85027

== ENCOUNTER → 2024-05-05 12:04 | Outpatient (REF) | payer MEDICARE, OTHER, SELFPAY ==
[2024-05-05 12:37] LABS: % Basophils 0.1 % (0-2); % Eosinophils 3.4 % (0-6); % Immature Granulocytes 0.6 % (0-0.5); % Lymphocytes 24.4 % (20.5-51.1); % Monocytes 3.6 % (1.7-9.3); % Neutrophils 67.9 % (42.2-75.2); Absolute Eosinophils 0.4 10^3/uL (0-0.7); Absolute Immature Granulocytes 0.1 10^3/uL (0-0.05); Absolute Lymphocytes 2.5 10^3/uL (1.2-3.4); Absolute Monocytes 0.4 10^3/uL (0.1-0.6); Hematocrit 22.3 % (39.0-52.0); Hemoglobin 7.1 g/dL (13.0-18.0); Mean Corp Hgb Conc. 31.8 g/dL (33.0-37.0); Mean Corpuscular Hgb 33.2 pg (27.0-31.0); Mean Corpuscular Volume 104.2 fL (80.0-94.0); Mean Platelet Volume 10.9 fL (7.4-10.4); Nucleated Red Blood Cells % 0 % (-); Platelet Count 715 10^3/uL (130-400); Red Blood Cell Count 2.14 10^6/uL (4.70-6.10); Red Cell Dist. Width 20.4 % (11.5-14.5); White Blood Cell Count 10.3 10^3/uL (4.8-10.8)
[2024-05-05 15:11] LABS: Blood Urea Nitrogen 28 mg/dl (9-20); Calcium 8.2 mg/dl (8.4-10.2); Carbon Dioxide 23 mmol/L (22-30); Chloride 103 mmol/L (98-107); Glucose 100 mg/dl (70-99); Magnesium 2.1 mg/dl (1.6-2.3); Potassium 4.8 mmol/L (3.5-5.1); Sodium 138 mmol/L (135-145); eGFR 41.19
== END ==
LOC: OLABN 12:04
PROVIDERS: ATTENDING PHYSICIAN Student in an Organized Health Care Education/Training Program
DX: I10 Essential (primary) hypertension (principal)
CPT/HCPCS: 36415; 80048; 83735; 85025

== ENCOUNTER → 2024-05-08 11:06 | Outpatient (REF) | payer MEDICARE, OTHER, SELFPAY ==
[2024-05-08 11:48] LABS: Reticulocyte Count 1.8 % (0.4-2.8)
[2024-05-08 12:46] LABS: Iron 31 ug/dl (49-181)
[2024-05-08 12:56] LABS: Percent Saturation 13 % (20-50); Total Iron Binding Capacity 229 ug/dl (261-462)
[2024-05-08 15:15] LABS: LDH 387 U/L (120-246)
== END ==
LOC: OLABN 11:06
PROVIDERS: ATTENDING PHYSICIAN Student in an Organized Health Care Education/Training Program
DX: D63.8 Anemia in other chronic diseases classified elsewhere (principal)
CPT/HCPCS: 36415; 82728; 83540; 83550; 83615; 85045